=== PATIENT | male | born 1960 | race Hispanic/Latino ===

== ENCOUNTER 2017-05-15 20:28 | Inpatient (IN) | payer MEDICAID, OTHER ==
[2017-05-15 20:28] VITALS: BMI 29.1
--- NOTE | 2017-05-15 23:29 | ED PDOC ---
Lower Extremity Pain/Injury Time Seen by Provider: 05/15/17 22:21 Chief Complaint (Nursing): Lower Extremity Problem/Injury Chief Complaint (Provider): Lower Extremity Problem History Per: Patient History/Exam Limitations: no limitations Onset/Duration Of Symptoms: Days (x3 days) Current Symptoms Are (Timing): Still Present Severity: Moderate Additional Complaint(s): 56 year old male presents to ED with complaints of bilateral lower extremity pain and swelling x3 days; patient has a past medical history of bilateral DVT, HTN, pulmonary embolism, and chronic kidney disease. Notes pain is worse in left leg than the right. (+) SOB, chest tightness, and cough. (-) vomiting, diarrhea, abdominal pain, prolonged immobility (-) current anticoagulation (-) fever (-) hemoptysis (-) rash. PCP: None - Risk Factors DVT Risk Factors: Pos: Decreased Mobility, Decreased Activity, History Of DVT, History Of PE Past Medical History Reviewed: Historical Data, Nursing Documentation, Vital Signs Vital Signs: Last Vital Signs Temp 98.4 F 05/15/17 20:39 Pulse 97 H 05/15/17 20:39 Resp 16 05/15/17 20:39 BP 151/93 H 05/15/17 20:39 Pulse Ox 98 05/15/17 20:39 - Medical History PMH: HTN, Kidney Stones, Pulmonary Embolism, Chronic Kidney Disease Denies: Depression - Surgical History Surgical History: Hernia Repair - Family History Family History: States: Unknown Family Hx - Immunization History Hx Tetanus Toxoid Vaccination: No Hx Influenza Vaccination: No Hx Pneumococcal Vaccination: No - Home Medications Home Medications: Ambulatory Orders Medication Instructions Recorded Amlodipine Besylate [Norvasc] 10 mg PO DAILY #10 tab 02/03/15 - Allergies Allergies/Adverse Reactions: Allergies Allergy/AdvReac Type Severity Reaction Status Date / Time NSAIDS (Non-Steroidal Allergy RASH Verified 05/15/17 20:38 Anti-Inflamma Wells Criteria for PE - Wells Criteria for Pulmonary Embolism Clinical Signs and Symptoms of DVT: Yes Heart Rate >100: No Immobilization at least 3 days;Surgery previous 4 weeks: No Previous, objectively diagnosed PE or DVT: Yes Hemoptysis: No Total Score: 4.5 Review of Systems ROS Statement: Except As Marked, All Systems Reviewed And Found Negative Cardiovascular: Positive for: Chest Pain (chest tightness) Respiratory: Positive for: Cough, Shortness of Breath Gastrointestinal: Negative for: Vomiting, Abdominal Pain, Diarrhea Musculoskeletal: Positive for: Leg Pain (bilateral with swelling) Physical Exam - Reviewed Nursing Documentation Reviewed: Yes Vital Signs Reviewed: Yes - Physical Exam Appears: Positive for: Non-toxic, No Acute Distress (disheveled), Uncomfortable Head Exam: Positive for: NORMOCEPHALIC Skin: Positive for: Normal Color (poor hygiene noted to feet (-) evidence of cellulitis (-) warmth (+) fungal nail infection to all toes), Dry Eye Exam: Positive for: Normal appearance. Negative for: Conjunctival injection ENT: Positive for: Normal ENT Inspection Neck: Positive for: Normal, Painless ROM, Supple, Trachea Midline. Negative for : Limited ROM Cardiovascular/Chest: Positive for: Regular Rate, Rhythm. Negative for: Murmur Respiratory: Positive for: Normal Breath Sounds, Decreased Breath Sounds ( bilaterally), Other (speaking in full sentences, respirations nonlabored.). Negative for: Accessory Muscle Use, Stridor, Respiratory Distress Gastrointestinal/Abdominal: Positive for: Bowel Sounds (active x4), Soft. Negative for: Tenderness, Distended, Guarding, Rebound Back: Negative for: L CVA Tenderness, R CVA Tenderness, Vertebral Tenderness Extremity: Positive for: Normal ROM (decreased ROM of left knee secondary to pain), Pedal Edema (3+ bilaterally), Calf Tenderness (moderate in left calf, mild in right calf), Swelling (3+ pitting edema bilaterally). Negative for: Deformity Neurologic/Psych: Positive for: Alert, Oriented. Negative for: Motor/Sensory Deficits - Laboratory Results Result Diagrams: 05/16/17 00:12 05/16/17 00:12 - ECG O2 Sat by Pulse Oximetry: 98 (RA) Pulse Ox Interpretation: Normal Medical Decision Making Medical Decision Makin Initial impression: bilateral lower leg edema r/o DVT Initial plan: * BNP * Labs * Trop I * PTT/PT * CXR * UA * US DUPLEX LOWER EXTRM VEIN BILAT * EKG 0000 Patient signed out to Josefina Thomas PA-C pending US and labs. Scribe Attestation: Documented by Coral Schwarz, acting as a scribe for Sary Barry PA-C. Provider Scribe Attestation: All medical record entries made by the Scribe were at my direction and personally dictated by me. I have reviewed the chart and agree that the record accurately reflects my personal performance of the history, physical exam, medical decision making, and the department course for this patient. I have also personally directed, reviewed, and agree with the discharge instructions and disposition. Disposition - Clinical Impression Clinical Impression: DVT (deep venous thrombosis), Chest pain - Patient ED Disposition Is Patient to be Admitted: Transfer of Care - Disposition Disposition: Transfer of Care Disposition Time: 00:00 Condition: STABLE Patient Signed Over To: Josefina Thomas Handoff Comments: pending US, CXR, EKG, and labs
[2017-05-16 00:18] LABS: BASO # 0.1 K/uL (0.0-0.2); BASO % 1.1 % (0.0-2.0); EOS # 0.1 K/uL (0.0-0.7); EOS % 2.3 % (0.0-4.0); HEMOGLOBIN 11.5 g/dL (12.0-18.0); LYMPH # 1.3 K/uL (1.0-4.3); LYMPH % 20.4 % (20.0-40.0); MEAN CELL VOLUME 83.5 fl (80.0-94.0); MEAN CORPUSCULAR HEMOGLOBIN 26.9 pg (27.0-31.0); MEAN CORPUSCULAR HGB CONC 32.2 g/dL (33.0-37.0); MEAN PLATELET VOLUME 7.8 fl (7.2-11.7); MONO # 0.6 K/uL (0.0-0.8); MONO % 8.9 % (0.0-10.0); NEUT # 4.2 K/uL (1.8-7.0); NEUT % 67.3 % (50.0-75.0); NRBC % 0.2 % (0.0-0.0); RBC 4.26 Mil/uL (4.40-5.90); RED CELL DISTRIBUTION WIDTH 16.2 % (11.5-14.5); WHITE BLOOD COUNT 6.2 K/uL (4.8-10.8)
[2017-05-16 00:27] LABS: ALBUMIN 3.8 g/dL (3.5-5.0); ALT/SGPT 30 U/L (21-72); AST/SGOT 19 U/L (17-59); BLOOD UREA NITROGEN 10 mg/dl (9-20); GFR AFRICAN-AMERICAN > 60; GFR NON-AFRICAN AMERICAN > 60
[2017-05-16 00:38] LABS: B-TYPE NATRIURETIC PEPTIDE 85.5 pg/ml (0-900)
--- NOTE | 2017-05-16 00:52 | US ---
EXAM: US Duplex Bilateral Lower Extremity Veins CLINICAL HISTORY: 56 years old, male; Signs and symptoms; Edema, localized and swelling of limb; Lower extremity, bilateral; Additional info: B/l lower extremity edema, HX of dvt TECHNIQUE: Real-time ultrasound scan of the veins of the bilateral lower extremities with color Doppler flow, spectral waveform analysis and compression. COMPARISON: US - DUPLEX LOWER EXTRM VEIN RIGHT 2015-06-03 01:09 FINDINGS: Right deep veins: No DVT in the right common femoral. There is nonocclusive thrombus in the right femoral and popliteal veins. Left deep veins: No DVT in the left common femoral and femoral veins. The left common femoral and femoral veins demonstrate normal color flow, are normally compressible, with normal phasic flow and/or augmentation response. There is nonocclusive thrombus in the left popliteal vein. Soft tissues: Soft tissue edema. No popliteal cyst. IMPRESSION: Bilateral lower extremity deep venous thrombosis.
[2017-05-16] MEDS ORDERED: Enoxaparin 120 mg Syringe SC STA (01:09)
[2017-05-16] MEDS ORDERED: Morphine 4 MG/ML VIAL IVP ONE (01:11)
--- NOTE | 2017-05-16 01:13 | ED PDOC ---
- Laboratory Results Result Diagrams: 05/16/17 00:12 05/16/17 00:12 - ECG O2 Sat by Pulse Oximetry: 98 (RA) - Progress ED Course And Treament: Case endorsed to keno writer/runner from [facility] FLAHERTY pending labs, imaging EXAM: US Duplex Bilateral Lower Extremity Veins CLINICAL HISTORY: 56 years old, male; Signs and symptoms; Edema, localized and swelling of limb; Lower extremity, bilateral; Additional info: B/l lower extremity edema, HX of dvt TECHNIQUE: Real-time ultrasound scan of the veins of the bilateral lower extremities with color Doppler flow, spectral waveform analysis and compression. COMPARISON: US - DUPLEX LOWER EXTRM VEIN RIGHT 2015-06-03 01:09 FINDINGS: Right deep veins: No DVT in the right common femoral. There is nonocclusive thrombus in the right femoral and popliteal veins. Left deep veins: No DVT in the left common femoral and femoral veins. The left common femoral and femoral veins demonstrate normal color flow, are normally compressible, with normal phasic flow and/or augmentation response. There is nonocclusive thrombus in the left popliteal vein. Soft tissues: Soft tissue edema. No popliteal cyst. IMPRESSION: Bilateral lower extremity deep venous thrombosis. Patient educated on findings, Lovenox dose ordered. Patient with complaints of chest tightness earlier tonight, CTA ordered CT Scan ANGIO CHEST PE PROTOCOL Exam Date: 05/16/17 This imaging exam was performed at [facility] EXAM: CT Angiography Chest With Intravenous Contrast CLINICAL HISTORY: 56 years old, male; Pain; Chest pressure; Additional info: Chest tightness, + dvt TECHNIQUE: Axial computed tomographic angiography images of the chest with intravenous contrast using pulmonary embolism protocol. All CT scans at this facility use one or more dose reduction techniques, viz.: automated exposure control; ma/kV adjustment per patient size (including targeted exams where dose is matched to indication; i.e. head); or iterative reconstruction technique. 1242 images are submitted. Axial images are submitted in soft tissue lung and bone windows. MIP reconstructed images were created and reviewed. Coronal and sagittal reformatted images were created and reviewed. CONTRAST: 95 mL of [id number] administered intravenously. COMPARISON: CT - ANGIO CHEST PE PROTOCOL 2015-03-25 15:18 FINDINGS: Pulmonary arteries: The pulmonary artery enhancement measures 149-169 Hounsfield units which decreases the sensitivity of the examination. As shown no definite central pulmonary embolus is identified. Aorta: No acute findings. No thoracic aortic aneurysm. Lungs: There is bibasilar atelectasis. COPD. Minimal biapical subpleural bullous disease. Minimal lingular infiltration. The major airways are patent. No mass. Pleural space: Unremarkable. No significant effusion. No pneumothorax. Heart: Cardiomegaly. Trace fluid in the superior pericardial recess. Mediastinum: Small hiatal hernia. Bones/joints: No acute fracture. No dislocation. Soft tissues: Unremarkable. Lymph nodes: Right hilar lymph nodes. Liver: Enlarged fatty liver. Spleen: Enlarged spleen measuring 14.6 cm. Adrenals: Normal adrenal glands. Other findings: Multilevel vacuum degenerative disc disease. IMPRESSION: 1. The pulmonary artery enhancement measures 149-169 Hounsfield units which decreases the sensitivity of the examination. As shown no definite central pulmonary embolus is identified. 2. No active disease. Case discussed with Dr. Perez, Medical service on-call, for admission. Disposition - Clinical Impression Clinical Impression: DVT (deep venous thrombosis), Chest pain - POA Present On Arrival: Deep Vein Thrombosis / PE - Disposition Disposition: Admitted as In-Patient Disposition Time: 03:45 Condition: FAIR
[2017-05-16 01:14] LABS: PROTHROMBIN TIME 11.7 Seconds (9.8-13.1)
[2017-05-16 01:15] LABS: INR 1.1 (0.9-1.2); PARTIAL THROMBOPLASTIN TIME 27.8 Seconds (25.6-37.1)
[2017-05-16] MEDS ORDERED: Morphine 4 MG/ML VIAL ONE (01:22)
[2017-05-16] MEDS ORDERED: Sodium Chloride 0.9% 50 ML IV ONE (01:35)
[2017-05-16] MEDS ORDERED: Iodixanol 320 MG/ML 100 ML BOTTLE IV ONE (01:36)
--- NOTE | 2017-05-16 03:11 | CT ---
EXAM: CT Angiography Chest With Intravenous Contrast CLINICAL HISTORY: 56 years old, male; Pain; Chest pressure; Additional info: Chest tightness, + dvt TECHNIQUE: Axial computed tomographic angiography images of the chest with intravenous contrast using pulmonary embolism protocol. All CT scans at this facility use one or more dose reduction techniques, viz.: automated exposure control; ma/kV adjustment per patient size (including targeted exams where dose is matched to indication; i.e. head); or iterative reconstruction technique. 1242 images are submitted. Axial images are submitted in soft tissue lung and bone windows. MIP reconstructed images were created and reviewed. Coronal and sagittal reformatted images were created and reviewed. CONTRAST: 95 mL of [id number] administered intravenously. COMPARISON: CT - ANGIO CHEST PE PROTOCOL 2015-03-25 15:18 FINDINGS: Pulmonary arteries: The pulmonary artery enhancement measures 149-169 Hounsfield units which decreases the sensitivity of the examination. As shown no definite central pulmonary embolus is identified. Aorta: No acute findings. No thoracic aortic aneurysm. Lungs: There is bibasilar atelectasis. COPD. Minimal biapical subpleural bullous disease. Minimal lingular infiltration. The major airways are patent. No mass. Pleural space: Unremarkable. No significant effusion. No pneumothorax. Heart: Cardiomegaly. Trace fluid in the superior pericardial recess. Mediastinum: Small hiatal hernia. Bones/joints: No acute fracture. No dislocation. Soft tissues: Unremarkable. Lymph nodes: Right hilar lymph nodes. Liver: Enlarged fatty liver. Spleen: Enlarged spleen measuring 14.6 cm. Adrenals: Normal adrenal glands. Other findings: Multilevel vacuum degenerative disc disease. IMPRESSION: 1. The pulmonary artery enhancement measures 149-169 Hounsfield units which decreases the sensitivity of the examination. As shown no definite central pulmonary embolus is identified. 2. No active disease.
[2017-05-16 03:27] LABS: URINE COLOR LIGHT YELLOW (YELLOW)
[2017-05-16 03:28] LABS: PH,URINE 7.5 (5.0-8.0); URINE BILIRUBIN NEGATIVE (NEGATIVE); URINE BLOOD NEGATIVE (NEGATIVE); URINE CLARITY Clear (Clear); URINE GLUCOSE (UA) NEGATIVE (Normal); URINE LEUKOCYTE ESTERASE NEGATIVE Leu/uL (Negative); URINE NITRATE NEGATIVE (NEGATIVE); URINE PROTEIN NEGATIVE (NEGATIVE); URINE UROBILINOGEN 0.2 mg/dL (0.2-1.0)
[2017-05-16] MEDS ORDERED: HYDROmorphone 0.5 mg/0.5 ml ISec IVP ONE (06:00)
[2017-05-16] MEDS: oxyCODONE 10 mg Immediate Release Tab PO PRN ×3 (09:37→22:21)
--- NOTE | 2017-05-16 09:58 | RAD ---
HISTORY: SOB, leg swelling COMPARISON: Comparison chest dated 06/03/2015. TECHNIQUE: Chest PA and lateral FINDINGS: LUNGS: Mild bibasilar atelectasis left greater than right PLEURA: No significant pleural effusion identified. No pneumothorax apparent. CARDIOVASCULAR: Normal. OSSEOUS STRUCTURES: Minor multilevel degenerative spondylosis of the thoracic spine. VISUALIZED UPPER ABDOMEN: Normal. OTHER FINDINGS: None. IMPRESSION: Minor bibasilar atelectasis left greater than right.
[2017-05-16] MEDS: Enoxaparin 120 mg Syringe SC SCH ×2 (10:24→21:01)
--- NOTE | 2017-05-16 10:52 | CARD ---
APPROVED REPORT EKG Measurement Heart [id number] <Conclusion> Normal sinus rhythm Normal ECG
--- NOTE | 2017-05-16 12:47 | CP.PCM.CON ---
History of Present Illness - History of Present Illness History of Present Illness: General Surgery Consult Note - Dr. Minaya 56 y/o male with PMHx of B/L DVT, PE, and HTN seen at bedside for surgical consultation s/p bilateral lower extremity DVT. Pt states he noticed his legs began to swell and become painful 3 days ago. Yesterday, he began feeling short of breath and chest tightness while at work, which prompted his hospital visit. He states he has had clots in his legs before, and that the first time it happened they traveled up to his lungs. He admits to being on Coumadin for several years until approx 4-6 months ago, when he went to a new clinic and was told by his doctor he could stop taking. Since then, he has not been on any blood thinners. At present, he admits to mild tenderness in both calves but otherwise feels ok. States he has not experienced any CP/SOB since admission. Denies F/C/N/V. PSH: five left knee surgeries, left side hernia repair, right corneal transplant All: NSAIDS (rash, hives) FamHx: noncontributory SocHx: social EtOH; 4 cigs/day (formerly 1 pack/day for 30 years until 2 months ago); denies drug use Review of Systems - Review of Systems All systems: reviewed and no additional remarkable complaints except (per HPI) Past Patient History - Past Medical History & Family History Past Medical History?: Yes - Past Social History Smoking Status: Light Smoker < 10 Cigarettes Daily - CARDIAC Hx Cardiac Disorders: Yes Hx Hypertension: Yes - PULMONARY Hx Respiratory Disorders: Yes Hx Pulmonary Embolism: Yes - NEUROLOGICAL Hx Neurological Disorder: No - HEENT Hx HEENT Problems: No - RENAL Hx Chronic Kidney Disease: Yes Hx Kidney Stones: Yes - ENDOCRINE/METABOLIC Hx Endocrine Disorders: No - HEMATOLOGICAL/ONCOLOGICAL Hx Blood Disorders: No Hx AIDS: No Hx Human Immunodeficiency Virus (HIV): No - INTEGUMENTARY Hx Dermatological Problems: No - MUSCULOSKELETAL/RHEUMATOLOGICAL Hx Musculoskeletal Disorders: No Hx Falls: No - GASTROINTESTINAL Hx Gastrointestinal Disorders: No - GENITOURINARY/GYNECOLOGICAL Hx Genitourinary Disorders: No - PSYCHIATRIC Hx Psychophysiologic Disorder: No Hx Depression: No Hx Substance Use: No - SURGICAL HISTORY Hx Surgeries: Yes Hx Herniorrhaphy: Yes Hx Orthopedic Surgery: Yes (L KNEE) - ANESTHESIA Hx Anesthesia: Yes Hx Anesthesia Reactions: No Meds Allergies/Adverse Reactions: Allergies Allergy/AdvReac Type Severity Reaction Status Date / Time NSAIDS (Non-Steroidal Allergy RASH Verified 05/15/17 20:38 Anti-Inflamma - Medications Medications: Current Medications Acetaminophen (Tylenol 325mg Tab) 650 mg PO Q6 PRN PRN Reason: Pain, moderate (4-7) Amlodipine Besylate (Norvasc) 10 mg PO DAILY CANDI Enoxaparin Sodium (Lovenox) 110 mg SC Q12 CANDI PRN Reason: Protocol Last Admin: 05/16/17 10:24 Dose: 110 mg Oxycodone HCl (Oxycodone Immediate Release Tab) 10 mg PO Q6 PRN PRN Reason: Pain, severe (8-10) Last Admin: 05/16/17 09:37 Dose: 10 mg Physical Exam - Constitutional Appears: Well, Non-toxic, No Acute Distress - Extremities Exam Extremities exam: Positive for: calf tenderness, pedal edema Additional comments: bilateral pedal edema noted, L>R erythema with increase in temperature noted, L>R mild posterior calf tenderness B/L Results - Vital Signs Recent Vital Signs: Last Vital Signs Temp 98.3 F 05/16/17 08:00 Pulse 76 05/16/17 09:00 Resp 18 05/16/17 08:00 BP 136/81 05/16/17 08:00 Pulse Ox 96 05/16/17 08:00 - Labs Result Diagrams: 05/16/17 00:12 05/16/17 00:12 Labs: Laboratory Results - last 24 hr 05/16/17 05/16/17 05/16/17 00:12 00:12 00:12 WBC 6.2 RBC 4.26 L Hgb 11.5 L Hct 35.6 MCV 83.5 D MCH 26.9 L MCHC 32.2 L RDW 16.2 H Plt Count 194 MPV 7.8 Neut % (Auto) 67.3 Lymph % (Auto) 20.4 [place] % (Auto) 8.9 Eos % (Auto) 2.3 Baso % (Auto) 1.1 Neut # (Auto) 4.2 Lymph # (Auto) 1.3 [place] # (Auto) 0.6 Eos # (Auto) 0.1 Baso # (Auto) 0.1 PT 11.7 INR 1.1 APTT 27.8 Sodium 140 Potassium 4.1 Chloride 106 Carbon Dioxide 23 Anion Gap 15 BUN 10 Creatinine 0.7 L Est GFR ( Amer) > 60 Est GFR (Non-Af Amer) > 60 Random Glucose 92 Calcium 9.0 Total Bilirubin 0.4 AST 19 ALT 30 Alkaline Phosphatase 80 Troponin I < 0.0120 NT-Pro-B Natriuret Pep 85.5 Total Protein 7.6 Albumin 3.8 Globulin 3.8 Albumin/Globulin Ratio 1.0 Urine Color Urine Clarity Urine pH Ur Specific [place] Urine Protein Urine Glucose (UA) Urine Ketones Urine Blood Urine Nitrate Urine Bilirubin Urine Urobilinogen Ur Leukocyte Esterase 05/16/17 05/16/17 00:12 08:43 WBC RBC Hgb Hct MCV MCH MCHC RDW Plt Count MPV Neut % (Auto) Lymph % (Auto) [place] % (Auto) Eos % (Auto) Baso % (Auto) Neut # (Auto) Lymph # (Auto) [place] # (Auto) Eos # (Auto) Baso # (Auto) PT INR APTT Sodium Potassium Chloride Carbon Dioxide Anion Gap BUN Creatinine Est GFR ( Amer) Est GFR (Non-Af Amer) Random Glucose Calcium Total Bilirubin AST ALT Alkaline Phosphatase Troponin I < 0.0120 NT-Pro-B Natriuret Pep Total Protein Albumin Globulin Albumin/Globulin Ratio Urine Color Light yellow Urine Clarity Clear Urine pH 7.5 Ur Specific [place] 1.010 Urine Protein Negative Urine Glucose (UA) Negative Urine Ketones Negative Urine Blood Negative Urine Nitrate Negative Urine Bilirubin Negative Urine Urobilinogen 0.2 Ur Leukocyte Esterase Negative Assessment & Plan - Assessment and Plan (Free Text) Assessment: 56M with B/L lower extremity DVT Plan: -plan for IVC filter tomorrow morning -continue pain mgt per primary team -continue Lovenox -discussed with Dr. Minaya
[2017-05-16] MEDS ORDERED: oxyCODONE 10 mg Immediate Release Tab PO ONE (14:27)
--- NOTE | 2017-05-16 17:24 | CP.PCM.HP ---
History of Present Illness - History of Present Illness History of Present Illness: A 56 year old male came for swelling and pain of both lower legs for three to four days. He has a history of DVT left five years ago and at that time he had a PE too. He has been taking coumadin until 4-6 months ago when he heard that he could stop taking coumadin. He also felt chest tightness yesterday which prompted him to come to ER. He denies shortness of breath or chest pain. He denies any family history of bleeding disorder. He denies any recent surgery , trauma, any medications or cancer. He smokes four cigarettes a day. He used to take 10 mg of oxycodone at home for severe pain as needed. Present on Admission - Present on Admission Any Indicators Present on Admission: No History of DVT/PE: Yes History of Uncontrolled Diabetes: No Urinary Catheter: No Decubitus Ulcer Present: No Review of Systems - Constitutional Constitutional: absent: Chills - Cardiovascular Cardiovascular: absent: Chest Pain - Respiratory Respiratory: absent: Cough - Gastrointestinal Gastrointestinal: absent: Nausea, Vomiting - Neurological Neurological: absent: Abnormal Hearing Past Patient History - Past Medical History & Family History Past Medical History?: Yes - Past Social History Smoking Status: Light Smoker < 10 Cigarettes Daily - CARDIAC Hx Cardiac Disorders: Yes Hx Hypertension: Yes - PULMONARY Hx Respiratory Disorders: Yes Hx Pulmonary Embolism: Yes - NEUROLOGICAL Hx Neurological Disorder: No - HEENT Hx HEENT Problems: No - RENAL Hx Chronic Kidney Disease: Yes Hx Kidney Stones: Yes - ENDOCRINE/METABOLIC Hx Endocrine Disorders: No - HEMATOLOGICAL/ONCOLOGICAL Hx Blood Disorders: No Hx AIDS: No Hx Human Immunodeficiency Virus (HIV): No - INTEGUMENTARY Hx Dermatological Problems: No - MUSCULOSKELETAL/RHEUMATOLOGICAL Hx Musculoskeletal Disorders: No Hx Falls: No - GASTROINTESTINAL Hx Gastrointestinal Disorders: No - GENITOURINARY/GYNECOLOGICAL Hx Genitourinary Disorders: No - PSYCHIATRIC Hx Psychophysiologic Disorder: No Hx Depression: No Hx Substance Use: No - SURGICAL HISTORY Hx Surgeries: Yes Hx Herniorrhaphy: Yes Hx Orthopedic Surgery: Yes (L KNEE) - ANESTHESIA Hx Anesthesia: Yes Hx Anesthesia Reactions: No Meds Allergies/Adverse Reactions: Allergies Allergy/AdvReac Type Severity Reaction Status Date / Time NSAIDS (Non-Steroidal Allergy RASH Verified 05/15/17 20:38 Anti-Inflamma Physical Exam - Constitutional Appears: No Acute Distress - Respiratory Exam Respiratory Exam: Clear to Auscultation Bilateral, NORMAL BREATHING PATTERN. absent: Wheezes - Cardiovascular Exam Cardiovascular Exam: REGULAR RHYTHM. absent: Systolic Murmur - GI/Abdominal Exam GI & Abdominal Exam: Distended, Soft. absent: Tenderness - Extremities Exam Extremities exam: Positive for: calf tenderness (edematous, reddish swelling of both lower legs. warm extremities.) Results - Vital Signs Recent Vital Signs: Last Vital Signs Temp 97.9 F 05/16/17 17:00 Pulse 75 05/16/17 17:00 Resp 14 05/16/17 17:00 BP 143/86 05/16/17 17:00 Pulse Ox 97 05/16/17 17:00 - Labs Result Diagrams: 05/16/17 00:12 05/16/17 00:12 Labs: Laboratory Results - last 24 hr 05/16/17 05/16/17 05/16/17 00:12 00:12 00:12 WBC 6.2 RBC 4.26 L Hgb 11.5 L Hct 35.6 MCV 83.5 D MCH 26.9 L MCHC 32.2 L RDW 16.2 H Plt Count 194 MPV 7.8 Neut % (Auto) 67.3 Lymph % (Auto) 20.4 [place] % (Auto) 8.9 Eos % (Auto) 2.3 Baso % (Auto) 1.1 Neut # (Auto) 4.2 Lymph # (Auto) 1.3 [place] # (Auto) 0.6 Eos # (Auto) 0.1 Baso # (Auto) 0.1 PT 11.7 INR 1.1 APTT 27.8 Sodium 140 Potassium 4.1 Chloride 106 Carbon Dioxide 23 Anion Gap 15 BUN 10 Creatinine 0.7 L Est GFR ( Amer) > 60 Est GFR (Non-Af Amer) > 60 Random Glucose 92 Calcium 9.0 Total Bilirubin 0.4 AST 19 ALT 30 Alkaline Phosphatase 80 Troponin I < 0.0120 NT-Pro-B Natriuret Pep 85.5 Total Protein 7.6 Albumin 3.8 Globulin 3.8 Albumin/Globulin Ratio 1.0 Urine Color Urine Clarity Urine pH Ur Specific [place] Urine Protein Urine Glucose (UA) Urine Ketones Urine Blood Urine Nitrate Urine Bilirubin Urine Urobilinogen Ur Leukocyte Esterase 05/16/17 05/16/17 00:12 08:43 WBC RBC Hgb Hct MCV MCH MCHC RDW Plt Count MPV Neut % (Auto) Lymph % (Auto) [place] % (Auto) Eos % (Auto) Baso % (Auto) Neut # (Auto) Lymph # (Auto) [place] # (Auto) Eos # (Auto) Baso # (Auto) PT INR APTT Sodium Potassium Chloride Carbon Dioxide Anion Gap BUN Creatinine Est GFR ( Amer) Est GFR (Non-Af Amer) Random Glucose Calcium Total Bilirubin AST ALT Alkaline Phosphatase Troponin I < 0.0120 NT-Pro-B Natriuret Pep Total Protein Albumin Globulin Albumin/Globulin Ratio Urine Color Light yellow Urine Clarity Clear Urine pH 7.5 Ur Specific [place] 1.010 Urine Protein Negative Urine Glucose (UA) Negative Urine Ketones Negative Urine Blood Negative Urine Nitrate Negative Urine Bilirubin Negative Urine Urobilinogen 0.2 Ur Leukocyte Esterase Negative Assessment & Plan - Assessment and Plan (Free Text) Assessment: DVT b/l lower extremities no PE history of DVT and PE Plan: therapeutic dose of lovenox vascular surgery consult. will bridge to coumadin. - Date & Time Date: 05/16/17 Time: 17:27
--- NOTE | 2017-05-16 21:47 | CP.PCM.CON ---
History of Present Illness - History of Present Illness History of Present Illness: 56 year old male with a history of recurrent DVT and PE, off anticoagulation, admitted with LE swelling, found to have B/L LE DVT. 2013 - unprovoked left LE + PE, placed on coumadin x 1.5 years 2017 - recurrent LLE DVT, placed on coumadin and was stopped 3-4 months ago. Denies immobility or LE trauma. Reports to staying active. Past medical history: DVT/PE, HTN Past surgical history: Five knee surgery, hernia repair, right cornea transplant Family history: Denies abnormal bleeding/clotting in the family Social history: Smokes 4-5 cigarettes daily, social alcohol, denies illicit drug use. Allergies: NSAIDs Review of systems: All remaining review of systems including HEENT, cardiovascular, respiratory, gastrointestinal, genitourinary, musculoskeletal, dermatologic, neurologic, and psychiatric are negative unless mentioned in the HPI. Past Patient History - Past Medical History & Family History Past Medical History?: Yes - Past Social History Smoking Status: Light Smoker < 10 Cigarettes Daily - CARDIAC Hx Cardiac Disorders: Yes Hx Hypertension: Yes - PULMONARY Hx Respiratory Disorders: Yes Hx Pulmonary Embolism: Yes - NEUROLOGICAL Hx Neurological Disorder: No - HEENT Hx HEENT Problems: No - RENAL Hx Chronic Kidney Disease: Yes Hx Kidney Stones: Yes - ENDOCRINE/METABOLIC Hx Endocrine Disorders: No - HEMATOLOGICAL/ONCOLOGICAL Hx Blood Disorders: No Hx AIDS: No Hx Human Immunodeficiency Virus (HIV): No - INTEGUMENTARY Hx Dermatological Problems: No - MUSCULOSKELETAL/RHEUMATOLOGICAL Hx Musculoskeletal Disorders: No Hx Falls: No - GASTROINTESTINAL Hx Gastrointestinal Disorders: No - GENITOURINARY/GYNECOLOGICAL Hx Genitourinary Disorders: No - PSYCHIATRIC Hx Psychophysiologic Disorder: No Hx Depression: No Hx Substance Use: No - SURGICAL HISTORY Hx Surgeries: Yes Hx Herniorrhaphy: Yes Hx Orthopedic Surgery: Yes (L KNEE) - ANESTHESIA Hx Anesthesia: Yes Hx Anesthesia Reactions: No Meds Allergies/Adverse Reactions: Allergies Allergy/AdvReac Type Severity Reaction Status Date / Time NSAIDS (Non-Steroidal Allergy RASH Verified 05/15/17 20:38 Anti-Inflamma - Medications Medications: Current Medications Acetaminophen (Tylenol 325mg Tab) 650 mg PO Q6 PRN PRN Reason: Pain, moderate (4-7) Amlodipine Besylate (Norvasc) 10 mg PO DAILY [facility] Last Admin: 05/16/17 13:23 Dose: 10 mg Enoxaparin Sodium (Lovenox) 110 mg SC Q12 [facility] PRN Reason: Protocol Last Admin: 05/16/17 21:01 Dose: 110 mg Oxycodone HCl (Oxycodone Immediate Release Tab) 10 mg PO Q4H PRN PRN Reason: Pain, severe (8-10) Physical Exam - Head Exam Head Exam: ATRAUMATIC - Eye Exam Eye Exam: Normal appearance - ENT Exam ENT Exam: Mucous Membranes Dry - Respiratory Exam Respiratory Exam: NORMAL BREATHING PATTERN - Cardiovascular Exam Cardiovascular Exam: +S1, +S2 - GI/Abdominal Exam GI & Abdominal Exam: Normal Bowel Sounds - Extremities Exam Extremities exam: Positive for: pedal edema - Neurological Exam Neurological exam: Oriented x3 - Psychiatric Exam Psychiatric exam: Normal Affect, Normal Mood - Skin Skin Exam: Warm Results - Vital Signs Recent Vital Signs: Last Vital Signs Temp 98.5 F 05/16/17 20:55 Pulse 75 05/16/17 20:55 Resp 16 05/16/17 20:55 BP 133/83 05/16/17 20:55 Pulse Ox 96 05/16/17 20:55 - Labs Result Diagrams: 05/16/17 00:12 05/16/17 00:12 Labs: Laboratory Results - last 24 hr 05/16/17 05/16/17 05/16/17 00:12 00:12 00:12 WBC 6.2 RBC 4.26 L Hgb 11.5 L Hct 35.6 MCV 83.5 D MCH 26.9 L MCHC 32.2 L RDW 16.2 H Plt Count 194 MPV 7.8 Neut % (Auto) 67.3 Lymph % (Auto) 20.4 [place] % (Auto) 8.9 Eos % (Auto) 2.3 Baso % (Auto) 1.1 Neut # (Auto) 4.2 Lymph # (Auto) 1.3 [place] # (Auto) 0.6 Eos # (Auto) 0.1 Baso # (Auto) 0.1 PT 11.7 INR 1.1 APTT 27.8 Sodium 140 Potassium 4.1 Chloride 106 Carbon Dioxide 23 Anion Gap 15 BUN 10 Creatinine 0.7 L Est GFR ( Amer) > 60 Est GFR (Non-Af Amer) > 60 Random Glucose 92 Calcium 9.0 Total Bilirubin 0.4 AST 19 ALT 30 Alkaline Phosphatase 80 Troponin I < 0.0120 NT-Pro-B Natriuret Pep 85.5 Total Protein 7.6 Albumin 3.8 Globulin 3.8 Albumin/Globulin Ratio 1.0 Urine Color Urine Clarity Urine pH Ur Specific Whitney Urine Protein Urine Glucose (UA) Urine Ketones Urine Blood Urine Nitrate Urine Bilirubin Urine Urobilinogen Ur Leukocyte Esterase 05/16/17 05/16/17 00:12 08:43 WBC RBC Hgb Hct MCV MCH MCHC RDW Plt Count MPV Neut % (Auto) Lymph % (Auto) [place] % (Auto) Eos % (Auto) Baso % (Auto) Neut # (Auto) Lymph # (Auto) [place] # (Auto) Eos # (Auto) Baso # (Auto) PT INR APTT Sodium Potassium Chloride Carbon Dioxide Anion Gap BUN Creatinine Est GFR ( Amer) Est GFR (Non-Af Amer) Random Glucose Calcium Total Bilirubin AST ALT Alkaline Phosphatase Troponin I < 0.0120 NT-Pro-B Natriuret Pep Total Protein Albumin Globulin Albumin/Globulin Ratio Urine Color Light yellow Urine Clarity Clear Urine pH 7.5 Ur Specific Whitney 1.010 Urine Protein Negative Urine Glucose (UA) Negative Urine Ketones Negative Urine Blood Negative Urine Nitrate Negative Urine Bilirubin Negative Urine Urobilinogen 0.2 Ur Leukocyte Esterase Negative Assessment & Plan (1) DVT (deep venous thrombosis) Assessment and Plan: recurrent, unprovoked B/L LE DVT on therapeutic lovenox okay to restart coumadin will need lifelong therapeutic anticoagulation given recurrence discussed smoking cessation vascular surgery evaluation for IVC filter consideration Status: Acute (2) Anemia Assessment and Plan: will check ferritin, retic count, b12, folate, FOBT to further characterize Thank you for this interesting consult. Status: Acute
[2017-05-17] MEDS: oxyCODONE 10 mg Immediate Release Tab PO PRN ×6 (02:54→23:25)
[2017-05-17 06:18] LABS: PROTHROMBIN TIME 11.7 Seconds (9.8-13.1)
[2017-05-17 06:19] LABS: INR 1.1 (0.9-1.2)
[2017-05-17 06:49] LABS: FERRITIN 32.5 ng/Ml (17.9-464)
--- NOTE | 2017-05-17 07:44 | CP.PCM.PCO ---
Physician Communication Note - Physician Communication Note Physician Communication Note: pt refuses IVC procedure. Would prefer anticoagulation
[2017-05-17] MEDS: Enoxaparin 120 mg Syringe SC SCH ×2 (09:32→21:38)
[2017-05-17 17:31] LABS: FOLATE 11.9 ng/mL
--- NOTE | 2017-05-17 18:01 | CP.PCM.PN ---
Subjective - Date & Time of Evaluation Date of Evaluation: 05/17/17 Time of Evaluation: 17:57 - Subjective Subjective: itching and more redness on right lower leg no change of left leg Objective - Vital Signs/Intake and Output Vital Signs (last 24 hours): Temp Pulse Resp BP Pulse Ox 97.1 F L 74 14 131/81 97 05/17/17 16:45 05/17/17 16:45 05/17/17 16:45 05/17/17 16:45 05/17/17 16:45 Intake and Output: 05/17/17 05/17/17 06:59 18:59 Intake Total 1400 Balance 1400 - Medications Medications: Current Medications Acetaminophen (Tylenol 325mg Tab) 650 mg PO Q6 PRN PRN Reason: Pain, moderate (4-7) Amlodipine Besylate (Norvasc) 10 mg PO DAILY [facility] Last Admin: 05/17/17 09:33 Dose: 10 mg Enoxaparin Sodium (Lovenox) 110 mg SC Q12 [facility] PRN Reason: Protocol Last Admin: 05/17/17 09:32 Dose: 110 mg Oxycodone HCl (Oxycodone Immediate Release Tab) 10 mg PO Q4H PRN PRN Reason: Pain, severe (8-10) Last Admin: 05/17/17 15:18 Dose: 10 mg - Labs Labs: 05/16/17 00:12 05/16/17 00:12 PT 11.7 Seconds (9.8-13.1) 05/17/17 04:50 INR 1.1 (0.9-1.2) 05/17/17 04:50 APTT 27.8 Seconds (25.6-37.1) 05/16/17 00:12 - Constitutional Appears: No Acute Distress - Respiratory Exam Respiratory Exam: Clear to Ausculation Bilateral. absent: Wheezes - Cardiovascular Exam Cardiovascular Exam: REGULAR RHYTHM. absent: Murmur - GI/Abdominal Exam GI & Abdominal Exam: Soft. absent: Tenderness Assessment and Plan - Assessment and Plan (Free Text) Assessment: bilateral lower extremity DVT on therapeutic lovenox coumadin 5 mg started today Plan: repeat PT and INR tomorrow morning as per hematology, he needs a lifelong anti-coagulation continue lovenox, bridge to coumadin he is requesting benadryl for itchiness. also he asks regular diet instead of 2 gram sodium diet.
--- NOTE | 2017-05-17 21:32 | CP.PCM.PN ---
Subjective - Date & Time of Evaluation Date of Evaluation: 05/17/17 Time of Evaluation: 18:55 - Subjective Subjective: Has itching in legs Objective - Vital Signs/Intake and Output Vital Signs (last 24 hours): Temp Pulse Resp BP Pulse Ox 98.2 F 79 16 131/87 97 05/17/17 20:28 05/17/17 20:47 05/17/17 20:28 05/17/17 20:28 05/17/17 20:28 Intake and Output: 05/17/17 05/18/17 18:59 06:59 Intake Total 1400 Balance 1400 - Medications Medications: Current Medications Acetaminophen (Tylenol 325mg Tab) 650 mg PO Q6 PRN PRN Reason: Pain, moderate (4-7) Amlodipine Besylate (Norvasc) 10 mg PO DAILY [facility] Last Admin: 05/17/17 09:33 Dose: 10 mg Diphenhydramine HCl (Benadryl) 25 mg PO Q6 PRN PRN Reason: Itching / Pruritus Last Admin: 05/17/17 18:18 Dose: 25 mg Enoxaparin Sodium (Lovenox) 110 mg SC Q12 [facility] PRN Reason: Protocol Last Admin: 05/17/17 09:32 Dose: 110 mg Oxycodone HCl (Oxycodone Immediate Release Tab) 10 mg PO Q4H PRN PRN Reason: Pain, severe (8-10) Last Admin: 05/17/17 19:26 Dose: 10 mg - Labs Labs: 05/16/17 00:12 05/16/17 00:12 PT 11.7 Seconds (9.8-13.1) 05/17/17 04:50 INR 1.1 (0.9-1.2) 05/17/17 04:50 APTT 27.8 Seconds (25.6-37.1) 05/16/17 00:12 - Head Exam Head Exam: ATRAUMATIC - Eye Exam Eye Exam: Normal appearance - ENT Exam ENT Exam: Mucous Membranes Dry - Respiratory Exam Respiratory Exam: NORMAL BREATHING PATTERN - Cardiovascular Exam Cardiovascular Exam: +S1, +S2 - GI/Abdominal Exam GI & Abdominal Exam: Normal Bowel Sounds - Extremities Exam Extremities Exam: Pedal Edema Assessment and Plan (1) DVT (deep venous thrombosis) Assessment & Plan: therapeutic anticoagulation for life given recurrent venous clotting on lovenox bridging with coumadin; goal INR 2-3 Status: Acute (2) Anemia Assessment & Plan: iron and b12 deficiency will supplement Status: Acute
[2017-05-18] MEDS: oxyCODONE 10 mg Immediate Release Tab PO PRN ×6 (03:36→23:43)
--- NOTE | 2017-05-18 05:46 | CP.PCM.PN ---
Subjective - Date & Time of Evaluation Date of Evaluation: 05/18/17 Time of Evaluation: 05:15 - Subjective Subjective: Vascular Surgery- Dr. Minaya Patient seen and examined at bedside this AM. no acute events overnight. Patient is refusing IVC filter. No new complaints at this time Objective - Vital Signs/Intake and Output Vital Signs (last 24 hours): Temp Pulse Resp BP Pulse Ox 97.8 F 69 18 135/88 97 05/18/17 05:04 05/18/17 05:04 05/18/17 05:04 05/18/17 05:04 05/18/17 05:04 Intake and Output: 05/17/17 05/18/17 18:59 06:59 Intake Total 1400 Balance 1400 - Medications Medications: Current Medications Acetaminophen (Tylenol 325mg Tab) 650 mg PO Q6 PRN PRN Reason: Pain, moderate (4-7) Amlodipine Besylate (Norvasc) 10 mg PO DAILY [facility] Last Admin: 05/17/17 09:33 Dose: 10 mg Cyanocobalamin (Vitamin B12 1000 Mcg/Ml Inj) 1,000 mcg IM DAILY [facility] Diphenhydramine HCl (Benadryl) 25 mg PO Q6 PRN PRN Reason: Itching / Pruritus Last Admin: 05/17/17 18:18 Dose: 25 mg Enoxaparin Sodium (Lovenox) 110 mg SC Q12 [facility] PRN Reason: Protocol Last Admin: 05/17/17 21:38 Dose: 110 mg Iron Sucrose 200 mg/ Sodium (Chloride) 110 mls @ 110 mls/hr IVPB DAILY [facility] Stop: 05/23/17 09:01 Oxycodone HCl (Oxycodone Immediate Release Tab) 10 mg PO Q4H PRN PRN Reason: Pain, severe (8-10) Last Admin: 05/18/17 03:36 Dose: 10 mg - Labs Labs: 05/16/17 00:12 05/16/17 00:12 PT 11.7 Seconds (9.8-13.1) 05/17/17 04:50 INR 1.1 (0.9-1.2) 05/17/17 04:50 APTT 27.8 Seconds (25.6-37.1) 05/16/17 00:12 - Constitutional Appears: Non-toxic, No Acute Distress - Head Exam Head Exam: ATRAUMATIC - Eye Exam Eye Exam: EOMI. absent: Scleral icterus - Respiratory Exam Respiratory Exam: NORMAL BREATHING PATTERN. absent: Accessory Muscle Use, Respiratory Distress - Cardiovascular Exam Cardiovascular Exam: +S1, +S2. absent: Bradycardia, Tachycardia - GI/Abdominal Exam GI & Abdominal Exam: Soft. absent: Firm, Guarding, Rigid, Tenderness - Neurological Exam Neurological Exam: Alert, Awake, Oriented x3 - Psychiatric Exam Psychiatric exam: Agitated - Skin Skin Exam: Intact, Warm Assessment and Plan - Assessment and Plan (Free Text) Assessment: 56M recurrent LLE DVT; patient refusing surgery anti-coag therapy; was to be put on pradaxa however pt could not afford it; will be bridged to coumadin once INR therapeutic will be discharged no surgical intervention at this time thank you for allowing us to be part of the care team discussed w/ Dr. Rei Tabares PGY1
[2017-05-18 08:56] LABS: INR 1.1 (0.9-1.2); PROTHROMBIN TIME 11.7 Seconds (9.8-13.1)
[2017-05-18] MEDS: Enoxaparin 120 mg Syringe SC SCH ×2 (10:46→21:30)
--- NOTE | 2017-05-18 14:53 | CP.PCM.PN ---
Subjective - Date & Time of Evaluation Date of Evaluation: 05/18/17 Time of Evaluation: 14:50 - Subjective Subjective: complaining of sharp pain on both calves no shortness of breath Objective - Vital Signs/Intake and Output Vital Signs (last 24 hours): Temp Pulse Resp BP Pulse Ox 97.5 F L 79 18 138/88 97 05/18/17 12:00 05/18/17 12:00 05/18/17 12:00 05/18/17 12:00 05/18/17 12:00 - Medications Medications: Current Medications Acetaminophen (Tylenol 325mg Tab) 650 mg PO Q6 PRN PRN Reason: Pain, moderate (4-7) Amlodipine Besylate (Norvasc) 10 mg PO DAILY [facility] Last Admin: 05/18/17 10:47 Dose: 10 mg Cyanocobalamin (Vitamin B12 1000 Mcg/Ml Inj) 1,000 mcg IM DAILY [facility] Diphenhydramine HCl (Benadryl) 25 mg PO Q6 PRN PRN Reason: Itching / Pruritus Last Admin: 05/17/17 18:18 Dose: 25 mg Enoxaparin Sodium (Lovenox) 110 mg SC Q12 [facility] PRN Reason: Protocol Last Admin: 05/18/17 10:46 Dose: 110 mg Iron Sucrose 200 mg/ Sodium (Chloride) 110 mls @ 110 mls/hr IVPB DAILY [facility] Stop: 05/23/17 09:01 Last Admin: 05/18/17 10:47 Dose: 110 mls/hr Oxycodone HCl (Oxycodone Immediate Release Tab) 10 mg PO Q4H PRN PRN Reason: Pain, severe (8-10) Last Admin: 05/18/17 11:28 Dose: 10 mg Warfarin Sodium (Coumadin) 5 mg PO QD5 ONE PRN Reason: Protocol Stop: 05/18/17 17:01 - Labs Labs: 05/16/17 00:12 05/16/17 00:12 PT 11.7 Seconds (9.8-13.1) 05/18/17 06:17 INR 1.1 (0.9-1.2) 05/18/17 06:17 APTT 27.8 Seconds (25.6-37.1) 05/16/17 00:12 - Constitutional Appears: No Acute Distress - Respiratory Exam Respiratory Exam: Clear to Ausculation Bilateral. absent: Wheezes - Cardiovascular Exam Cardiovascular Exam: REGULAR RHYTHM. absent: Murmur - GI/Abdominal Exam GI & Abdominal Exam: Soft. absent: Tenderness - Extremities Exam Extremities Exam: Calf Tenderness (bilateral, erythematous swellings of both lower legs, dry skin) Assessment and Plan - Assessment and Plan (Free Text) Assessment: b/l LE DVT on therapeutic lovenox with a bridge to coumadin anemia Plan: 1. DVT - continue lovenox 5 mg of coumadin, PT and INR in AM 2. pain control - he is requesting 1 mg of dilaudid iv one dose by saying that it took care of all the pain when he was at the ER. 3. anemia - as per orders of hematology.
--- NOTE | 2017-05-18 22:15 | CP.PCM.PN ---
Subjective - Date & Time of Evaluation Date of Evaluation: 05/18/17 Time of Evaluation: 17:40 - Subjective Subjective: Leg pain improved Objective - Vital Signs/Intake and Output Vital Signs (last 24 hours): Temp Pulse Resp BP Pulse Ox 98.3 F 80 17 141/90 97 05/18/17 19:21 05/18/17 19:21 18 19:21 05/18/17 19:21 05/18/17 19:21 Intake and Output: 05/18/17 05/19/17 18:59 06:59 Intake Total 2600 Balance 2600 - Medications Medications: Current Medications Acetaminophen (Tylenol 325mg Tab) 650 mg PO Q6 PRN PRN Reason: Pain, moderate (4-7) Amlodipine Besylate (Norvasc) 10 mg PO DAILY [facility] Last Admin: 05/18/17 10:47 Dose: 10 mg Cyanocobalamin (Vitamin B12 1000 Mcg/Ml Inj) 1,000 mcg IM DAILY [facility] Last Admin: 05/18/17 17:10 Dose: 1,000 mcg Diphenhydramine HCl (Benadryl) 25 mg PO Q6 PRN PRN Reason: Itching / Pruritus Last Admin: 05/17/17 18:18 Dose: 25 mg Enoxaparin Sodium (Lovenox) 110 mg SC Q12 [facility] PRN Reason: Protocol Last Admin: 05/18/17 21:30 Dose: 110 mg Iron Sucrose 200 mg/ Sodium (Chloride) 110 mls @ 110 mls/hr IVPB DAILY [facility] Stop: 05/23/17 09:01 Last Admin: 05/18/17 10:47 Dose: 110 mls/hr Oxycodone HCl (Oxycodone Immediate Release Tab) 10 mg PO Q4H PRN PRN Reason: Pain, severe (8-10) Last Admin: 05/18/17 19:44 Dose: 10 mg - Labs Labs: 05/16/17 00:12 05/16/17 00:12 PT 11.7 Seconds (9.8-13.1) 05/18/17 06:17 INR 1.1 (0.9-1.2) 05/18/17 06:17 APTT 27.8 Seconds (25.6-37.1) 05/16/17 00:12 - Head Exam Head Exam: ATRAUMATIC - Eye Exam Eye Exam: Normal appearance - ENT Exam ENT Exam: Mucous Membranes Dry - Respiratory Exam Respiratory Exam: NORMAL BREATHING PATTERN - Cardiovascular Exam Cardiovascular Exam: +S1, +S2 - GI/Abdominal Exam GI & Abdominal Exam: Normal Bowel Sounds - Extremities Exam Extremities Exam: Pedal Edema Assessment and Plan (1) DVT (deep venous thrombosis) Assessment & Plan: recurrent lifelong anticoagulation on lovenox with coumadin; goal INR 2-3 Status: Acute (2) Anemia Assessment & Plan: iron and b12 deficiency; on supplementation Status: Acute
[2017-05-19] MEDS: oxyCODONE 10 mg Immediate Release Tab PO PRN ×6 (03:47→23:51)
[2017-05-19 07:09] LABS: PROTHROMBIN TIME 11.4 Seconds (9.8-13.1)
[2017-05-19] MEDS: Enoxaparin 120 mg Syringe SC SCH (09:29)
--- NOTE | 2017-05-19 17:17 | CP.PCM.PN ---
Subjective - Date & Time of Evaluation Date of Evaluation: 05/19/17 Time of Evaluation: 17:14 - Subjective Subjective: pain on lower legs Objective - Vital Signs/Intake and Output Vital Signs (last 24 hours): Temp Pulse Resp BP Pulse Ox 98.2 F 79 20 146/87 97 05/19/17 15:47 05/19/17 15:47 05/19/17 15:47 05/19/17 15:47 05/19/17 15:47 Intake and Output: 05/19/17 05/19/17 06:59 18:59 Intake Total 2100 Balance 2100 - Medications Medications: Current Medications Acetaminophen (Tylenol 325mg Tab) 650 mg PO Q6 PRN PRN Reason: Pain, moderate (4-7) Amlodipine Besylate (Norvasc) 10 mg PO DAILY [facility] Last Admin: 05/19/17 09:30 Dose: 10 mg Cyanocobalamin (Vitamin B12 1000 Mcg/Ml Inj) 1,000 mcg IM DAILY [facility] Last Admin: 05/19/17 09:30 Dose: 1,000 mcg Diphenhydramine HCl (Benadryl) 25 mg PO Q6 PRN PRN Reason: Itching / Pruritus Last Admin: 05/18/17 22:32 Dose: 25 mg Iron Sucrose 200 mg/ Sodium (Chloride) 110 mls @ 110 mls/hr IVPB DAILY [facility] Stop: 05/23/17 09:01 Last Admin: 05/19/17 09:48 Dose: 110 mls/hr Oxycodone HCl (Oxycodone Immediate Release Tab) 10 mg PO Q4H PRN PRN Reason: Pain, severe (8-10) Last Admin: 05/19/17 15:54 Dose: 10 mg - Labs Labs: 05/16/17 00:12 05/16/17 00:12 PT 11.4 Seconds (9.8-13.1) 05/19/17 06:41 INR 1.0 (0.9-1.2) 05/19/17 06:41 APTT 27.8 Seconds (25.6-37.1) 05/16/17 00:12 - Constitutional Appears: No Acute Distress - Respiratory Exam Respiratory Exam: Clear to Ausculation Bilateral - Cardiovascular Exam Cardiovascular Exam: REGULAR RHYTHM. absent: Murmur - GI/Abdominal Exam GI & Abdominal Exam: Soft. absent: Tenderness - Extremities Exam Extremities Exam: Calf Tenderness (erythematous, bilateral swelling) Assessment and Plan - Assessment and Plan (Free Text) Assessment: DVT, b/l lower extremities anemia Plan: Yesterday at 5 PM, he received one dose of iv dilaudid. he is on 10 mg of oxycodone every four hours for pain. continue lovenox a bridge to coumadin still INR is low will give 7.5 mg of coumadin today repeat INR tomorrow.
--- NOTE | 2017-05-19 18:26 | CP.PCM.PN ---
Subjective - Date & Time of Evaluation Date of Evaluation: 05/19/17 Time of Evaluation: 18:00 - Subjective Subjective: Leg swelling imnproved INR subtherapeutic; increased coumadin dosing noted. Objective - Vital Signs/Intake and Output Vital Signs (last 24 hours): Temp Pulse Resp BP Pulse Ox 98.2 F 79 20 146/87 97 05/19/17 15:47 05/19/17 15:47 05/19/17 15:47 05/19/17 15:47 05/19/17 15:47 Intake and Output: 05/19/17 05/19/17 06:59 18:59 Intake Total 2100 Balance 2100 - Medications Medications: Current Medications Acetaminophen (Tylenol 325mg Tab) 650 mg PO Q6 PRN PRN Reason: Pain, moderate (4-7) Amlodipine Besylate (Norvasc) 10 mg PO DAILY [facility] Last Admin: 05/19/17 09:30 Dose: 10 mg Cyanocobalamin (Vitamin B12 1000 Mcg/Ml Inj) 1,000 mcg IM DAILY [facility] Last Admin: 05/19/17 09:30 Dose: 1,000 mcg Diphenhydramine HCl (Benadryl) 25 mg PO Q6 PRN PRN Reason: Itching / Pruritus Last Admin: 05/18/17 22:32 Dose: 25 mg Iron Sucrose 200 mg/ Sodium (Chloride) 110 mls @ 110 mls/hr IVPB DAILY [facility] Stop: 05/23/17 09:01 Last Admin: 05/19/17 09:48 Dose: 110 mls/hr Oxycodone HCl (Oxycodone Immediate Release Tab) 10 mg PO Q4H PRN PRN Reason: Pain, severe (8-10) Last Admin: 05/19/17 15:54 Dose: 10 mg - Labs Labs: 05/16/17 00:12 05/16/17 00:12 PT 11.4 Seconds (9.8-13.1) 05/19/17 06:41 INR 1.0 (0.9-1.2) 05/19/17 06:41 APTT 27.8 Seconds (25.6-37.1) 05/16/17 00:12 - Head Exam Head Exam: ATRAUMATIC - Eye Exam Eye Exam: Normal appearance - ENT Exam ENT Exam: Mucous Membranes Dry - Respiratory Exam Respiratory Exam: NORMAL BREATHING PATTERN - Cardiovascular Exam Cardiovascular Exam: +S1, +S2 - GI/Abdominal Exam GI & Abdominal Exam: Normal Bowel Sounds - Extremities Exam Extremities Exam: Pedal Edema Assessment and Plan (1) DVT (deep venous thrombosis) Assessment & Plan: recurrent on therapeutic anticoagulation lovenox bridging with coumadin; goal INR 2-3 Status: Acute (2) Anemia Assessment & Plan: B12 and iron deficiency on supplementation Status: Acute
[2017-05-19] MEDS ORDERED: Enoxaparin 120 mg Syringe SC STA (20:40)
[2017-05-20] MEDS: oxyCODONE 10 mg Immediate Release Tab PO PRN ×5 (03:57→20:02)
[2017-05-20 05:54] LABS: BASO % 0.7 % (0.0-2.0); EOS # 0.1 K/uL (0.0-0.7); EOS % 2.9 % (0.0-4.0); HEMOGLOBIN 12.7 g/dL (12.0-18.0); LYMPH # 1.3 K/uL (1.0-4.3); LYMPH % 26.4 % (20.0-40.0); MEAN CELL VOLUME 83.7 fl (80.0-94.0); MEAN CORPUSCULAR HEMOGLOBIN 27.2 pg (27.0-31.0); MEAN CORPUSCULAR HGB CONC 32.5 g/dL (33.0-37.0); MEAN PLATELET VOLUME 7.9 fl (7.2-11.7); MONO # 0.6 K/uL (0.0-0.8); MONO % 11.4 % (0.0-10.0); NEUT # 2.9 K/uL (1.8-7.0); NEUT % 58.6 % (50.0-75.0); NRBC % 0.1 % (0.0-0.0); RBC 4.68 Mil/uL (4.40-5.90); RED CELL DISTRIBUTION WIDTH 16.1 % (11.5-14.5)
[2017-05-20 06:14] LABS: BLOOD UREA NITROGEN 15 mg/dl (9-20); CALCIUM 9.2 mg/dL (8.4-10.2); GFR AFRICAN-AMERICAN > 60; GFR NON-AFRICAN AMERICAN > 60
[2017-05-20 06:54] LABS: PROTHROMBIN TIME 11.3 Seconds (9.8-13.1)
--- NOTE | 2017-05-20 07:42 | CP.PCM.PN ---
Subjective - Date & Time of Evaluation Date of Evaluation: 05/20/17 Time of Evaluation: 07:40 - Subjective Subjective: pain on both lower legs, more on left side swelling resolving Objective - Vital Signs/Intake and Output Vital Signs (last 24 hours): Temp Pulse Resp BP Pulse Ox 98.0 F 70 18 117/71 98 05/20/17 05:39 05/20/17 05:39 05/20/17 05:39 05/20/17 05:39 05/20/17 05:39 - Medications Medications: Current Medications Acetaminophen (Tylenol 325mg Tab) 650 mg PO Q6 PRN PRN Reason: Pain, moderate (4-7) Amlodipine Besylate (Norvasc) 10 mg PO DAILY [facility] Last Admin: 05/19/17 09:30 Dose: 10 mg Cyanocobalamin (Vitamin B12 1000 Mcg/Ml Inj) 1,000 mcg IM DAILY [facility] Last Admin: 05/19/17 09:30 Dose: 1,000 mcg Diphenhydramine HCl (Benadryl) 25 mg PO Q6 PRN PRN Reason: Itching / Pruritus Last Admin: 05/18/17 22:32 Dose: 25 mg Iron Sucrose 200 mg/ Sodium (Chloride) 110 mls @ 110 mls/hr IVPB DAILY [facility] Stop: 05/23/17 09:01 Last Admin: 05/19/17 09:48 Dose: 110 mls/hr Oxycodone HCl (Oxycodone Immediate Release Tab) 10 mg PO Q4H PRN PRN Reason: Pain, severe (8-10) Last Admin: 05/20/17 03:57 Dose: 10 mg - Labs Labs: 05/20/17 04:25 05/20/17 04:25 PT 11.3 Seconds (9.8-13.1) 05/20/17 04:25 INR 1.0 (0.9-1.2) 05/20/17 04:25 APTT 27.8 Seconds (25.6-37.1) 05/16/17 00:12 - Constitutional Appears: No Acute Distress - Respiratory Exam Respiratory Exam: Clear to Ausculation Bilateral. absent: Wheezes - Cardiovascular Exam Cardiovascular Exam: REGULAR RHYTHM. absent: Murmur - GI/Abdominal Exam GI & Abdominal Exam: Soft. absent: Tenderness Assessment and Plan - Assessment and Plan (Free Text) Assessment: DVT, bilateral lower extremities lovenox bridging to coumadin still subtherapeutic INR level Plan: continue lovenox will increase coumadin to 10 mg today. repeat INR in AM.
[2017-05-20 10:16] LABS: INR 1.1 (0.9-1.2); PROTHROMBIN TIME 11.7 Seconds (9.8-13.1)
[2017-05-20] MEDS: Enoxaparin 120 mg Syringe SC SCH ×2 (10:24→21:08)
--- NOTE | 2017-05-20 23:16 | CP.PCM.PN ---
Subjective - Date & Time of Evaluation Date of Evaluation: 05/20/17 Time of Evaluation: 20:20 - Subjective Subjective: Has some tingling in legs Objective - Vital Signs/Intake and Output Vital Signs (last 24 hours): Temp Pulse Resp BP Pulse Ox 98.2 F 87 20 131/71 96 05/20/17 19:16 05/20/17 21:00 05/20/17 19:16 05/20/17 19:16 05/20/17 19:16 Intake and Output: 05/20/17 05/21/17 18:59 06:59 Intake Total 840 Balance 840 - Medications Medications: Current Medications Acetaminophen (Tylenol 325mg Tab) 650 mg PO Q6 PRN PRN Reason: Pain, moderate (4-7) Amlodipine Besylate (Norvasc) 10 mg PO DAILY [facility] Last Admin: 05/20/17 09:28 Dose: 10 mg Cyanocobalamin (Vitamin B12 1000 Mcg/Ml Inj) 1,000 mcg IM DAILY [facility] Last Admin: 05/20/17 09:29 Dose: 1,000 mcg Diphenhydramine HCl (Benadryl) 25 mg PO Q6 PRN PRN Reason: Itching / Pruritus Last Admin: 05/20/17 21:11 Dose: 25 mg Enoxaparin Sodium (Lovenox) 110 mg SC Q12 [facility] PRN Reason: Protocol Last Admin: 05/20/17 21:08 Dose: 110 mg Iron Sucrose 200 mg/ Sodium (Chloride) 110 mls @ 110 mls/hr IVPB DAILY [facility] Stop: 05/23/17 09:01 Last Admin: 05/20/17 13:31 Dose: 110 mls/hr Oxycodone HCl (Oxycodone Immediate Release Tab) 10 mg PO Q4H PRN PRN Reason: Pain, severe (8-10) Last Admin: 05/20/17 20:02 Dose: 10 mg - Labs Labs: 05/20/17 04:25 05/20/17 04:25 PT 11.7 Seconds (9.8-13.1) 05/20/17 09:03 INR 1.1 (0.9-1.2) 05/20/17 09:03 APTT 27.8 Seconds (25.6-37.1) 05/16/17 00:12 - Head Exam Head Exam: ATRAUMATIC - Eye Exam Eye Exam: Normal appearance - ENT Exam ENT Exam: Mucous Membranes Dry - Respiratory Exam Respiratory Exam: NORMAL BREATHING PATTERN - Cardiovascular Exam Cardiovascular Exam: +S1, +S2 - GI/Abdominal Exam GI & Abdominal Exam: Normal Bowel Sounds Assessment and Plan (1) DVT (deep venous thrombosis) Assessment & Plan: recurrent life long anticoagulation on lovenox with coumadin bridging goal INR 2-3 Status: Acute (2) Anemia Assessment & Plan: b12 and iron deficiency on supplementation Status: Acute
[2017-05-21] MEDS: oxyCODONE 10 mg Immediate Release Tab PO PRN ×6 (04:09→20:14)
[2017-05-21 07:44] LABS: INR 1.2 (0.9-1.2); PROTHROMBIN TIME 13.4 Seconds (9.8-13.1)
[2017-05-21] MEDS: Enoxaparin 120 mg Syringe SC SCH ×2 (08:13→21:04)
[2017-05-21 12:16] VITALS: RESP 18
--- NOTE | 2017-05-21 17:00 | CP.PCM.PN ---
Subjective - Date & Time of Evaluation Date of Evaluation: 05/21/17 Time of Evaluation: 16:57 - Subjective Subjective: still pain and tingling on both calves, more on left side painful swelling of right hand from yesterday, iv site Objective - Vital Signs/Intake and Output Vital Signs (last 24 hours): Temp Pulse Resp BP Pulse Ox 98.6 F 91 H 18 137/85 97 05/21/17 15:40 05/21/17 15:40 05/21/17 15:40 05/21/17 15:40 05/21/17 15:40 - Medications Medications: Current Medications Acetaminophen (Tylenol 325mg Tab) 650 mg PO Q6 PRN PRN Reason: Pain, moderate (4-7) Amlodipine Besylate (Norvasc) 10 mg PO DAILY [facility] Last Admin: 05/21/17 08:16 Dose: 10 mg Cyanocobalamin (Vitamin B12 1000 Mcg/Ml Inj) 1,000 mcg IM DAILY [facility] Last Admin: 05/21/17 12:14 Dose: 1,000 mcg Diphenhydramine HCl (Benadryl) 25 mg PO Q6 PRN PRN Reason: Itching / Pruritus Last Admin: 05/21/17 12:12 Dose: 25 mg Enoxaparin Sodium (Lovenox) 110 mg SC Q12 [facility] PRN Reason: Protocol Last Admin: 05/21/17 08:13 Dose: 110 mg Ferrous Sulfate (Feosol) 325 mg PO BID [facility] Last Admin: 05/21/17 12:13 Dose: 325 mg Oxycodone HCl (Oxycodone Immediate Release Tab) 10 mg PO Q4H PRN PRN Reason: Pain, severe (8-10) Last Admin: 05/21/17 16:18 Dose: 10 mg Warfarin Sodium (Coumadin) 10 mg PO QD5 [facility] PRN Reason: Protocol Stop: 05/21/17 17:01 Warfarin Sodium (Coumadin) 2.5 mg PO 1700 ONE Stop: 05/21/17 17:01 - Labs Labs: 05/20/17 04:25 05/20/17 04:25 PT 13.4 Seconds (9.8-13.1) H 05/21/17 04:30 INR 1.2 (0.9-1.2) 05/21/17 04:30 APTT 27.8 Seconds (25.6-37.1) 05/16/17 00:12 - Constitutional Appears: No Acute Distress - Respiratory Exam Respiratory Exam: Clear to Ausculation Bilateral - Cardiovascular Exam Cardiovascular Exam: REGULAR RHYTHM. absent: Murmur - Extremities Exam Extremities Exam: Calf Tenderness (bilateral, erythematous swelling of right dorsum hand) Assessment and Plan - Assessment and Plan (Free Text) Assessment: DVT, b/l lower extremities recurrent still subtherapeutic INR of 1.2 anemia cellulitis of right hand Plan: 12.5 mg of coumadin today repeat INR in AM. continue lovenox po antibiotics for cellulitis
--- NOTE | 2017-05-21 22:32 | CP.PCM.PN ---
Subjective - Date & Time of Evaluation Date of Evaluation: 05/21/17 Time of Evaluation: 20:00 - Subjective Subjective: No complaints. 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 Objective - Vital Signs/Intake and Output Vital Signs (last 24 hours): Temp Pulse Resp BP Pulse Ox 98.5 F 88 18 127/87 97 05/21/17 19:19 05/21/17 19:19 05/21/17 19:19 05/21/17 19:19 05/21/17 19:19 Intake and Output: 05/21/17 05/22/17 18:59 06:59 Intake Total 1400 Balance 1400 - Medications Medications: Current Medications Acetaminophen (Tylenol 325mg Tab) 650 mg PO Q6 PRN PRN Reason: Pain, moderate (4-7) Amlodipine Besylate (Norvasc) 10 mg PO DAILY [facility] Last Admin: 05/21/17 08:16 Dose: 10 mg Cephalexin Monohydrate (Keflex) 500 mg PO Q6 [facility] PRN Reason: Protocol Last Admin: 05/21/17 21:04 Dose: 500 mg Cyanocobalamin (Vitamin B12 1000 Mcg/Ml Inj) 1,000 mcg IM DAILY [facility] Last Admin: 05/21/17 12:14 Dose: 1,000 mcg Diphenhydramine HCl (Benadryl) 25 mg PO Q6 PRN PRN Reason: Itching / Pruritus Last Admin: 05/21/17 12:12 Dose: 25 mg Enoxaparin Sodium (Lovenox) 110 mg SC Q12 [facility] PRN Reason: Protocol Last Admin: 05/21/17 21:04 Dose: 110 mg Ferrous Sulfate (Feosol) 325 mg PO BID [facility] Last Admin: 05/21/17 17:53 Dose: 325 mg Oxycodone HCl (Oxycodone Immediate Release Tab) 10 mg PO Q4H PRN PRN Reason: Pain, severe (8-10) Last Admin: 05/21/17 20:14 Dose: 10 mg - Labs Labs: 05/20/17 04:25 05/20/17 04:25 PT 13.4 Seconds (9.8-13.1) H 05/21/17 04:30 INR 1.2 (0.9-1.2) 05/21/17 04:30 APTT 27.8 Seconds (25.6-37.1) 05/16/17 00:12 - Head Exam Head Exam: ATRAUMATIC - Eye Exam Eye Exam: Normal appearance - ENT Exam ENT Exam: Mucous Membranes Dry - Respiratory Exam Respiratory Exam: NORMAL BREATHING PATTERN - Cardiovascular Exam Cardiovascular Exam: +S1, +S2 - GI/Abdominal Exam GI & Abdominal Exam: Normal Bowel Sounds - Extremities Exam Extremities Exam: Pedal Edema Assessment and Plan (1) DVT (deep venous thrombosis) Assessment & Plan: recurrent on lovenox with coumadin; goal INR 2-3 Status: Acute (2) Anemia Assessment & Plan: b12 and iron deficiency on supplementation Status: Acute
[2017-05-22] MEDS: oxyCODONE 10 mg Immediate Release Tab PO PRN ×4 (00:14→12:25)
[2017-05-22 05:43] LABS: INR 1.3 (0.9-1.2); PROTHROMBIN TIME 14.2 Seconds (9.8-13.1)
[2017-05-22] MEDS: Enoxaparin 120 mg Syringe SC SCH (09:34)
--- NOTE | 2017-05-22 11:34 | CP.PCM.PCO ---
Assessment & Plan - Assessment and Plan (Free Text) Assessment: pt. doing well, ambulating in hallway , denies sob, cp, fever chills INR 1.3 today- Rx for xarelto sent to [facility] pharmacy and medication is covered 100% Meds to bed provided, patient has all rx for meds at bedside pt. will f/u with outpatient pt. cleared to start xarelto by and then d/c to home today Xarelto 15 mg po bid x 3 weeks, then switch to 20 mg po daily -Instructions provided to patient who conveys understanding cont. keflex f/u with outpatient
[2017-05-22 12:15] VITALS: BP 139/89; PULSE 91; TEMP 97.8; O2SAT 98
--- NOTE | 2017-05-22 20:32 | CP.PCM.PN ---
Subjective - Date & Time of Evaluation Date of Evaluation: 05/22/17 Time of Evaluation: 14:00 - Subjective Subjective: less pain on legs walking on the floor Objective - Vital Signs/Intake and Output Vital Signs (last 24 hours): Temp Pulse Resp BP Pulse Ox 97.8 F 91 H 18 139/89 98 05/22/17 12:00 05/22/17 12:00 05/22/17 12:00 05/22/17 12:00 05/22/17 12:00 Intake and Output: 05/22/17 05/23/17 18:59 06:59 Intake Total 1200 Balance 1200 - Labs Labs: 05/20/17 04:25 05/20/17 04:25 PT 14.2 Seconds (9.8-13.1) H 05/22/17 04:20 INR 1.3 (0.9-1.2) H 05/22/17 04:20 APTT 27.8 Seconds (25.6-37.1) 05/16/17 00:12 - Constitutional Appears: Non-toxic - Respiratory Exam Respiratory Exam: Clear to Ausculation Bilateral. absent: Wheezes - Cardiovascular Exam Cardiovascular Exam: REGULAR RHYTHM. absent: Murmur - Extremities Exam Extremities Exam: Calf Tenderness (erythematous swellings on both calves) Assessment and Plan - Assessment and Plan (Free Text) Assessment: b/l LE DVT anemia cellulitis of right hand Plan: INR is still subtherapeutic switch to Xarelto discharge patient home out patient follow up in two days
== END 2017-05-22 14:30 | disposition home or self-care (01) | DRG 130 ==
LOC: H.ER 20:28 → H.ERHOLD 05-16 04:07 → H.TEL 05-16 05:30 → OBSVTOIN 05-16 11:31 → H.TEL 05-17 14:29
PROVIDERS: ADMIT Internal Medicine; ATTEND Internal Medicine
DX: I82.403 Acute embolism and thrombosis of unspecified deep veins of lower extremity, bilateral (principal); L03.113 Cellulitis of right upper limb; N18.9 Chronic kidney disease, unspecified; I12.9 Hypertensive chronic kidney disease with stage 1 through stage 4 chronic kidney disease, or unspecified chronic kidney disease; D64.9 Anemia, unspecified; R79.1 Abnormal coagulation profile; F17.210 Nicotine dependence, cigarettes, uncomplicated; Z86.711 Personal history of pulmonary embolism; Z86.718 Personal history of other venous thrombosis and embolism; Z79.01 Long term (current) use of anticoagulants; Z87.442 Personal history of urinary calculi

== ENCOUNTER 2017-05-28 19:37 | Inpatient (IN) | payer OTHER ==
[2017-05-28 19:37] VITALS: BMI 29.1
--- NOTE | 2017-05-28 22:11 | ED PDOC ---
Lower Extremity Pain/Injury Time Seen by Provider: 05/28/17 20:48 Chief Complaint (Nursing): Lower Extremity Problem/Injury Chief Complaint (Provider): Lower Extremity Problem/Injury History Per: Patient History/Exam Limitations: no limitations Onset/Duration Of Symptoms: Days (x3) Current Symptoms Are (Timing): Still Present Additional Complaint(s): 56 year old, male with medical history of DVT, presents to the emergency department with a complaint of bilateral lower extremity pain and swelling ongoing for 3 days. Patient was recently admitted for DVT and discharged with Coumadin, which he reported compliance. PMD: Wesley Perez MD Past Medical History Reviewed: Historical Data, Nursing Documentation, Vital Signs Vital Signs: Last Vital Signs Temp 98.1 F 05/28/17 20:28 Pulse 93 H 05/28/17 20:28 Resp 16 05/28/17 20:28 BP 149/90 05/28/17 20:28 Pulse Ox 100 05/28/17 20:28 - Medical History PMH: HTN, Kidney Stones, Pulmonary Embolism, Chronic Kidney Disease Denies: Depression, HIV - Surgical History Surgical History: Hernia Repair - Family History Family History: States: Unknown Family Hx - Social History Current smoker - smoking cessation education provided: No Ex-Smoker (has not smoked in the last 12 months): No Alcohol: None Drugs: Denies - Immunization History Hx Tetanus Toxoid Vaccination: No Hx Influenza Vaccination: No Hx Pneumococcal Vaccination: No - Home Medications Home Medications: Ambulatory Orders Medication Instructions Recorded Amlodipine Besylate [Norvasc] 10 mg PO DAILY #10 tab 02/03/15 Cephalexin [Keflex] 500 mg PO Q6 #24 cap 05/22/17 Ferrous Sulfate [Feosol] 325 mg PO BID #60 tab 05/22/17 Lactobacillus Acidophilus [Bacid 1 cap PO BID #10 cap 05/22/17 Acidophilus] Rivaroxaban [Xarelto] 15 mg PO BIDWM #42 tab 05/22/17 oxyCODONE/Acetaminophen [Percocet 1 ea PO Q6 #8 tab 05/22/17 5/325 mg Tab] - Allergies Allergies/Adverse Reactions: Allergies Allergy/AdvReac Type Severity Reaction Status Date / Time NSAIDS (Non-Steroidal Allergy RASH Verified 05/28/17 20:28 Anti-Inflamma Review of Systems ROS Statement: Except As Marked, All Systems Reviewed And Found Negative Musculoskeletal: Positive for: Leg Pain (and swelling bilaterally) Physical Exam - Reviewed Nursing Documentation Reviewed: Yes Vital Signs Reviewed: Yes - Physical Exam Appears: Positive for: No Acute Distress Head Exam: Positive for: ATRAUMATIC, NORMAL INSPECTION, NORMOCEPHALIC Cardiovascular/Chest: Positive for: Regular Rate, Rhythm, Chest Non Tender Respiratory: Positive for: Normal Breath Sounds. Negative for: Decreased Breath Sounds, Respiratory Distress Extremity: Positive for: Pedal Edema (2+ bilaterally with erythema, warmth and induration from knees to toes), Other. Negative for: Deformity (lower) Neurologic/Psych: Positive for: Alert, Oriented - Laboratory Results Result Diagrams: 05/28/17 22:54 05/28/17 22:54 - ECG O2 Sat by Pulse Oximetry: 100 (RA) Pulse Ox Interpretation: Normal Medical Decision Making Medical Decision Making: Initial Impression: Lower extremity swelling in setting of DVT Initial Plan: * CMP * Drug screen, urine * Lact acid, plasma * CBC * PTT * PT * Toradol 10mg IV * Blood culture * UA * US duplex LE US Duplex FINDINGS: Right deep veins: Lack of compressibility of right superficial femoral vein. No significant flow on color or spectral Doppler imaging. Incomplete compressibility of right popliteal vein. Partial flow on color or spectral Doppler imaging. Right superficial veins: Unremarkable. Left deep veins: Lack of compressibility of the left popliteal vein. No significant flow on color or spectral Doppler imaging. Left superficial veins: Unremarkable. Soft tissues: Edema within soft tissues. IMPRESSION: 1. Occlusive and nonocclusive deep vein thrombosis as above. 2. Incidental/non-acute findings are described above. Lovenax [address] Grijalva was consulted after Dr. Perez was unreachable. Patient will be admitted to the service of Dr. Grijalva in med surg. Diagnosis is bilateral DVTs of lower extremities. Scribe Attestation: Documented by Mary Grace Valdez, acting as a scribe for Bala Uriarte MD. Provider Scribe Attestation: All medical record entries made by the Scribe were at my direction and personally dictated by me. I have reviewed the chart and agree that the record accurately reflects my personal performance of the history, physical exam, medical decision making, and the department course for this patient. I have also personally directed, reviewed, and agree with the discharge instructions and disposition. Disposition - Clinical Impression Clinical Impression: DVT, bilateral lower limbs - Patient ED Disposition Is Patient to be Admitted: Yes Discussed With : Eduard Grijalva Doctor Will See Patient In The: Hospital - Disposition Disposition Time: 23:55 Condition: STABLE Patient Signed Over To: Eduard Grijalva - Pt Status Changed To: Hospital Disposition Of: Inpatient - Admit Certification Admit to Inpatient:: After my assessment, the patient will require hospitalization for at least two midnights. This is because of the severity of symptoms shown, intensity of services needed, and/or the medical risk in this patient being treated as an outpatient.
[2017-05-28] MEDS ORDERED: Oxycodone/Acetaminophen 5/325 mg Tab PO STA (22:21)
[2017-05-28 23:04] LABS: BASO % 0.7 % (0.0-2.0); EOS # 0.2 K/uL (0.0-0.7); EOS % 3.4 % (0.0-4.0); HEMOGLOBIN 11.6 g/dL (12.0-18.0); LYMPH # 1.1 K/uL (1.0-4.3); LYMPH % 20.2 % (20.0-40.0); MEAN CELL VOLUME 83.5 fl (80.0-94.0); MEAN CORPUSCULAR HEMOGLOBIN 28.1 pg (27.0-31.0); MEAN CORPUSCULAR HGB CONC 33.6 g/dL (33.0-37.0); MEAN PLATELET VOLUME 7.5 fl (7.2-11.7); MONO # 0.5 K/uL (0.0-0.8); MONO % 8.9 % (0.0-10.0); NEUT # 3.6 K/uL (1.8-7.0); NEUT % 66.8 % (50.0-75.0); NRBC % 0.1 % (0.0-0.0); RBC 4.13 Mil/uL (4.40-5.90); RED CELL DISTRIBUTION WIDTH 16.9 % (11.5-14.5); WHITE BLOOD COUNT 5.4 K/uL (4.8-10.8)
[2017-05-28 23:15] LABS: INR 1.4 (0.9-1.2); PROTHROMBIN TIME 15.5 Seconds (9.8-13.1)
[2017-05-28 23:21] LABS: ALBUMIN 3.7 g/dL (3.5-5.0); ALT/SGPT 35 U/L (21-72); AST/SGOT 22 U/L (17-59); BLOOD UREA NITROGEN 8 mg/dl (9-20); CALCIUM 8.7 mg/dL (8.4-10.2); GFR AFRICAN-AMERICAN > 60; GFR NON-AFRICAN AMERICAN > 60
--- NOTE | 2017-05-28 23:42 | US ---
EXAM: US Duplex Bilateral Lower Extremity Veins CLINICAL HISTORY: 56 years old, male; Signs and symptoms; Swelling of limb; Lower extremity, bilateral TECHNIQUE: Real-time ultrasound scan of the veins of the bilateral lower extremities with color Doppler flow, spectral waveform analysis and compression. COMPARISON: US - DUPLEX LOWER EXTRM VEIN BILAT 2017-05-15 23:51 FINDINGS: Right deep veins: Lack of compressibility of right superficial femoral vein. No significant flow on color or spectral Doppler imaging. Incomplete compressibility of right popliteal vein. Partial flow on color or spectral Doppler imaging. Right superficial veins: Unremarkable. Left deep veins: Lack of compressibility of the left popliteal vein. No significant flow on color or spectral Doppler imaging. Left superficial veins: Unremarkable. Soft tissues: Edema within soft tissues. IMPRESSION: 1. Occlusive and nonocclusive deep vein thrombosis as above. 2. Incidental/non-acute findings are described above.
[2017-05-28] MEDS ORDERED: Oxycodone/Acetaminophen 5/325 mg Tab ONE (23:51)
[2017-05-29] MEDS ORDERED: Enoxaparin 120 mg Syringe SC STA (00:01)
[2017-05-29] MEDS ORDERED: Morphine 4 MG/ML VIAL IVP ONE ×2 (01:14→03:03)
[2017-05-29] MEDS ORDERED: Morphine 4 MG/ML VIAL ONE (01:21)
--- NOTE | 2017-05-29 08:18 | CP.PCM.HP ---
History of Present Illness - History of Present Illness History of Present Illness: Patient evaluated with Dr Grijalva this morning. 56 year old, male with medical history of DVT, presented to the emergency department c/o of bilateral lower extremity pain and swelling ongoing for 3 days. Patient was recently admitted for DVT and discharged with Coumadin, which he reported compliance. He states that he has been applying lotion to both leg bt still develops severe skin dryness. Patient requests oxycodone to control his DVT related pain as he states that he has been on it for the past year for chronic B/L LE pain and feels no relief with other pain meds including Tylenol# 3. Al so patient request his diet to be change to regular diet. PMD: Wesley Perez MD Present on Admission - Present on Admission Any Indicators Present on Admission: Yes History of DVT/PE: Yes Review of Systems - Review of Systems All systems: reviewed and no additional remarkable complaints except - Cardiovascular Cardiovascular: Leg Edema, Pedal Edema - Integumentary Integumentary: Rash (B/L LE chronic) Past Patient History - Past Medical History & Family History Past Medical History?: Yes - Past Social History Smoking Status: Former Smoker - CARDIAC Hx Cardiac Disorders: Yes Hx Hypertension: Yes Hx Peripheral Edema: Yes - PULMONARY Hx Respiratory Disorders: Yes Hx Pulmonary Embolism: Yes - NEUROLOGICAL Hx Neurological Disorder: No - HEENT Hx HEENT Problems: No - RENAL Hx Chronic Kidney Disease: Yes Hx Kidney Stones: Yes - ENDOCRINE/METABOLIC Hx Endocrine Disorders: No - HEMATOLOGICAL/ONCOLOGICAL Hx Blood Disorders: No Hx AIDS: No Hx Blood Transfusions: No Hx Human Immunodeficiency Virus (HIV): No - INTEGUMENTARY Hx Dermatological Problems: Yes Hx Cellulitis: Yes - MUSCULOSKELETAL/RHEUMATOLOGICAL Hx Musculoskeletal Disorders: Yes Hx Arthritis: No Hx Back Pain: Yes Hx Falls: No - GASTROINTESTINAL Hx Gastrointestinal Disorders: No Hx Constipation: No - GENITOURINARY/GYNECOLOGICAL Hx Genitourinary Disorders: No - PSYCHIATRIC Hx Anxiety: Yes Hx Depression: No Hx Substance Use: Yes - SURGICAL HISTORY Hx Surgeries: Yes Hx Herniorrhaphy: Yes Hx Orthopedic Surgery: Yes (L KNEE) Other/Comment: cornea transplant right eye - ANESTHESIA Hx Anesthesia: Yes Hx Anesthesia Reactions: No Hx Malignant Hyperthermia: No Has any member of the family had a problem w/ anesthesia?: No Meds Allergies/Adverse Reactions: Allergies Allergy/AdvReac Type Severity Reaction Status Date / Time NSAIDS (Non-Steroidal Allergy RASH Verified 05/28/17 20:28 Anti-Inflamma Physical Exam - Constitutional Appears: Non-toxic, No Acute Distress - Eye Exam Eye Exam: EOMI, PERRL - ENT Exam ENT Exam: Mucous Membranes Moist - Respiratory Exam Respiratory Exam: Clear to Auscultation Bilateral, NORMAL BREATHING PATTERN. absent: Decreased Breath Sounds, Rales - Cardiovascular Exam Cardiovascular Exam: REGULAR RHYTHM, +S1, +S2. absent: Gallop - GI/Abdominal Exam GI & Abdominal Exam: Normal Bowel Sounds, Soft. absent: Tenderness - Extremities Exam Extremities exam: Positive for: pedal edema, tenderness. Negative for: normal inspection (B/L LE redness, swelling and cracked skin below knees) - Neurological Exam Neurological exam: Alert, Oriented x3 - Skin Skin Exam: Warm Results - Vital Signs Recent Vital Signs: Last Vital Signs Temp 98.2 F 05/29/17 05:23 Pulse 79 05/29/17 05:23 Resp 16 05/29/17 05:23 BP 125/74 05/29/17 05:23 Pulse Ox 96 05/29/17 05:23 - Labs Result Diagrams: 05/28/17 22:54 05/28/17 22:54 Labs: Laboratory Results - last 24 hr 05/28/17 05/28/17 05/28/17 22:54 22:54 22:54 WBC 5.4 RBC 4.13 L Hgb 11.6 L Hct 34.5 L MCV 83.5 MCH 28.1 MCHC 33.6 RDW 16.9 H Plt Count 191 MPV 7.5 Neut % (Auto) 66.8 Lymph % (Auto) 20.2 [place] % (Auto) 8.9 Eos % (Auto) 3.4 Baso % (Auto) 0.7 Neut # (Auto) 3.6 Lymph # (Auto) 1.1 [place] # (Auto) 0.5 Eos # (Auto) 0.2 Baso # (Auto) 0.0 PT INR APTT Sodium 138 Potassium 4.2 Chloride 102 Carbon Dioxide 24 Anion Gap 16 BUN 8 L Creatinine 0.7 L Est GFR ( Amer) > 60 Est GFR (Non-Af Amer) > 60 Random Glucose 101 Lactic Acid 1.2 Calcium 8.7 Total Bilirubin 0.3 AST 22 ALT 35 Alkaline Phosphatase 88 Total Protein 7.3 Albumin 3.7 Globulin 3.6 Albumin/Globulin Ratio 1.0 05/28/17 22:54 WBC RBC Hgb Hct MCV MCH MCHC RDW Plt Count MPV Neut % (Auto) Lymph % (Auto) [place] % (Auto) Eos % (Auto) Baso % (Auto) Neut # (Auto) Lymph # (Auto) [place] # (Auto) Eos # (Auto) Baso # (Auto) PT 15.5 H INR 1.4 H APTT 35.0 Sodium Potassium Chloride Carbon Dioxide Anion Gap BUN Creatinine Est GFR ( Amer) Est GFR (Non-Af Amer) Random Glucose Lactic Acid Calcium Total Bilirubin AST ALT Alkaline Phosphatase Total Protein Albumin Globulin Albumin/Globulin Ratio Assessment & Plan - Assessment and Plan (Free Text) Assessment: 56 y/o M admitted for worsening B/L DVT B/L LE DVT Chronic LE US: Occlusive and Non-Occlusive DVT B/L Anticoagulation: Patient was on maintenance dose of Xarelto at home. Will increase Xarelto to 15 mg daily for now Hem-onc consult Pain management consult C/w percocet PRN for now awaiting pain management recs
[2017-05-29] MEDS: Oxycodone/Acetaminophen 5/325 mg Tab PO SCH ×2 (09:00→17:10)
--- NOTE | 2017-05-29 09:25 | RAD ---
HISTORY: admit COMPARISON: 05/15/2007 teen, 06/03/2015 and 07/07/2013 FINDINGS: LUNGS: No dense consolidation. PLEURA: No significant pleural effusion identified, no pneumothorax apparent. CARDIOVASCULAR: mild cardiomegaly. Overall central pulmonary venous congestion similar OSSEOUS STRUCTURES: Thoracic spondylosis. Bilateral shoulder arthrosis VISUALIZED UPPER ABDOMEN: Normal. OTHER FINDINGS: None. IMPRESSION: Similar cardiovascular status.
--- NOTE | 2017-05-29 09:26 | CP.PCM.CON ---
History of Present Illness - History of Present Illness History of Present Illness: Vascular Surgery Consult Note - Dr. Minaya 56 y/o male with PMHx of B/L DVT, PE, and HTN seen at bedside this morning for vascular surgery consultation s/p bilateral lower extremity DVT. Pt was recently hospitalized two weeks ago with same problem and evaluated by surgical team. He was scheduled for IVC filter placement but refused on day of procedure. He was sent home with medications, which he states he has been taking. However, pt states the pain and swelling have been getting worse in the legs in the last two weeks since his discharge. He admits to occasional chest tightness over the last two weeks, intermittent in nature. He reiterates that he was on Coumadin for several years until approx 4-6 months ago, when he went to a new clinic and was told by his doctor he could stop taking it. Denies F/C/N /V. Denies CP/SOB at present. States he has read a lot about the IVC filter and is hesitant to proceed given the risks. PSH:L knee surgery x5, L inguinal hernia repair, R corneal transplant All: NSAIDS (urticaria) FamHx: noncontributory SocHx: social EtOH; 4 cigs/day (formerly 1 pack/day for 30 years); denies drug use Review of Systems - Review of Systems All systems: reviewed and no additional remarkable complaints except (per HPI) Past Patient History - Past Medical History & Family History Past Medical History?: Yes - Past Social History Smoking Status: Former Smoker - CARDIAC Hx Cardiac Disorders: Yes Hx Hypertension: Yes Hx Peripheral Edema: Yes - PULMONARY Hx Respiratory Disorders: Yes Hx Pulmonary Embolism: Yes - NEUROLOGICAL Hx Neurological Disorder: No - HEENT Hx HEENT Problems: No - RENAL Hx Chronic Kidney Disease: Yes Hx Kidney Stones: Yes - ENDOCRINE/METABOLIC Hx Endocrine Disorders: No - HEMATOLOGICAL/ONCOLOGICAL Hx Blood Disorders: No Hx AIDS: No Hx Blood Transfusions: No Hx Human Immunodeficiency Virus (HIV): No - INTEGUMENTARY Hx Dermatological Problems: Yes Hx Cellulitis: Yes - MUSCULOSKELETAL/RHEUMATOLOGICAL Hx Musculoskeletal Disorders: Yes Hx Arthritis: No Hx Back Pain: Yes Hx Falls: No - GASTROINTESTINAL Hx Gastrointestinal Disorders: No Hx Constipation: No - GENITOURINARY/GYNECOLOGICAL Hx Genitourinary Disorders: No - PSYCHIATRIC Hx Anxiety: Yes Hx Depression: No Hx Substance Use: Yes - SURGICAL HISTORY Hx Surgeries: Yes Hx Herniorrhaphy: Yes Hx Orthopedic Surgery: Yes (L KNEE) Other/Comment: cornea transplant right eye - ANESTHESIA Hx Anesthesia: Yes Hx Anesthesia Reactions: No Hx Malignant Hyperthermia: No Has any member of the family had a problem w/ anesthesia?: No Meds Allergies/Adverse Reactions: Allergies Allergy/AdvReac Type Severity Reaction Status Date / Time NSAIDS (Non-Steroidal Allergy RASH Verified 05/28/17 20:28 Anti-Inflamma - Medications Medications: Current Medications Ferrous Sulfate (Feosol) 325 mg PO BID [facility] Last Admin: 05/29/17 09:00 Dose: 325 mg Oxycodone/Acetaminophen (Percocet 5/325 Mg Tab) 1 tab PO Q6 [facility] Stop: 06/01/17 10:01 Last Admin: 05/29/17 09:00 Dose: 1 tab Rivaroxaban (Xarelto) 15 mg PO DAILY [facility] PRN Reason: Protocol Physical Exam - Constitutional Appears: Well, Non-toxic, No Acute Distress - Head Exam Head Exam: ATRAUMATIC, NORMAL INSPECTION - Respiratory Exam Respiratory Exam: absent: Chest Wall Tenderness, Respiratory Distress - Cardiovascular Exam Cardiovascular Exam: REGULAR RHYTHM - GI/Abdominal Exam GI & Abdominal Exam: Soft. absent: Distended, Tenderness - Extremities Exam Extremities exam: Positive for: calf tenderness, pedal edema, tenderness Additional comments: bilateral LE edema with mild-moderate calf tenderness and erythematous changes, L>R - Neurological Exam Neurological exam: Alert, Oriented x3 - Psychiatric Exam Psychiatric exam: Normal Affect, Normal Mood - Skin Skin Exam: Intact, Warm Results - Vital Signs Recent Vital Signs: Last Vital Signs Temp 98.3 F 05/29/17 08:00 Pulse 82 05/29/17 08:00 Resp 20 05/29/17 08:00 BP 147/90 05/29/17 08:00 Pulse Ox 98 05/29/17 08:00 - Labs Result Diagrams: 05/28/17 22:54 05/28/17 22:54 Labs: Laboratory Results - last 24 hr 05/28/17 05/28/17 05/28/17 22:54 22:54 22:54 WBC 5.4 RBC 4.13 L Hgb 11.6 L Hct 34.5 L MCV 83.5 MCH 28.1 MCHC 33.6 RDW 16.9 H Plt Count 191 MPV 7.5 Neut % (Auto) 66.8 Lymph % (Auto) 20.2 [place] % (Auto) 8.9 Eos % (Auto) 3.4 Baso % (Auto) 0.7 Neut # (Auto) 3.6 Lymph # (Auto) 1.1 [place] # (Auto) 0.5 Eos # (Auto) 0.2 Baso # (Auto) 0.0 PT INR APTT Sodium 138 Potassium 4.2 Chloride 102 Carbon Dioxide 24 Anion Gap 16 BUN 8 L Creatinine 0.7 L Est GFR ( Amer) > 60 Est GFR (Non-Af Amer) > 60 Random Glucose 101 Lactic Acid 1.2 Calcium 8.7 Total Bilirubin 0.3 AST 22 ALT 35 Alkaline Phosphatase 88 Total Protein 7.3 Albumin 3.7 Globulin 3.6 Albumin/Globulin Ratio 1.0 05/28/17 22:54 WBC RBC Hgb Hct MCV MCH MCHC RDW Plt Count MPV Neut % (Auto) Lymph % (Auto) [place] % (Auto) Eos % (Auto) Baso % (Auto) Neut # (Auto) Lymph # (Auto) [place] # (Auto) Eos # (Auto) Baso # (Auto) PT 15.5 H INR 1.4 H APTT 35.0 Sodium Potassium Chloride Carbon Dioxide Anion Gap BUN Creatinine Est GFR ( Amer) Est GFR (Non-Af Amer) Random Glucose Lactic Acid Calcium Total Bilirubin AST ALT Alkaline Phosphatase Total Protein Albumin Globulin Albumin/Globulin Ratio Assessment & Plan - Assessment and Plan (Free Text) Assessment: 56 y/o male with bilateral LE DVT Plan: -cont anticoagulation with Xarelto -recommending IVC filter, however pt currently refusing -attending to discuss risks and benefits with pt later this evening -continue medical management -discussed with Dr. Minaya
--- NOTE | 2017-05-29 10:47 | PQF GENQUE ---
This form is a permanent part of the medical record 05/29/17 Dr. Grijalva, 3 queries : 1. Please specify intended meaning of 'DVT': Deep vein thrombosis Deep vein thrombophlebitis Both deep vein thrombosis and thrombophlebitis Other (please specify) Unknown 2. Please specify the specific vessel (vein) involved, including laterality 3. Please specify the acuity: Acute Chronic History of/healed with no prophylaxis History of/healed with prophylaxis Other (please specify) Clinically unable to determine Unknown Patient with a recent admission for DVT and treated with Coumadin. Presents now with bilateral lower extremity pain, swelling , erythema, warmth and induration from knees to toes as per ER MD note. US: Occlusive and Nonocclusive deep vein thrombosis. Treated with Lovenox. Clarification of your documentation is requested to better reflect the severity of illness and intensity of treatment of your patient. Indicators present PHYSICIAN'S RESPONSE Based on your medical judgment of the clinical indicators outlined above please clarify the following: [] Practitioner response [] If unable to determine, please check the box, sign and date. Present On Admission (POA) Indicator: [] Present at the time of admission [] Not present at the time of admission [] Clinically Undetermined In responding to this query, please exercise your independent professional judgment. The fact that a question is asked does not imply that any particular answer is desired or expected. Thank you for your clarification on this documentation. If you have any questions please call:ext [phone] * Thank you, Jessi Castillo RN [facility]
[2017-05-29] MEDS ORDERED: HYDROmorphone 1 mg/ml ISec IVP PRN (12:15)
--- NOTE | 2017-05-29 12:20 | CP.PCM.CON ---
History of Present Illness - History of Present Illness History of Present Illness: 56 y/o male with PMHx of B/L DVT, PE, and HTN seen at bedside this morning for painconsultation s/p bilateral lower extremity DVT. Pt was recently hospitalized two weeks ago with same problem and evaluated by surgical team. He was scheduled for IVC filter placement but refused on day of procedure. He has pain which is intermittent sharp pain in LE. His pain was well controlled last week with oxycodone. Movement makes his pain worse and rest makes the pain better. Past Patient History - Past Medical History & Family History Past Medical History?: Yes - Past Social History Smoking Status: Former Smoker - CARDIAC Hx Cardiac Disorders: Yes Hx Hypertension: Yes Hx Peripheral Edema: Yes - PULMONARY Hx Respiratory Disorders: Yes Hx Pulmonary Embolism: Yes - NEUROLOGICAL Hx Neurological Disorder: No - HEENT Hx HEENT Problems: No - RENAL Hx Chronic Kidney Disease: Yes Hx Kidney Stones: Yes - ENDOCRINE/METABOLIC Hx Endocrine Disorders: No - HEMATOLOGICAL/ONCOLOGICAL Hx Blood Disorders: No Hx AIDS: No Hx Blood Transfusions: No Hx Human Immunodeficiency Virus (HIV): No - INTEGUMENTARY Hx Dermatological Problems: Yes Hx Cellulitis: Yes - MUSCULOSKELETAL/RHEUMATOLOGICAL Hx Musculoskeletal Disorders: Yes Hx Arthritis: No Hx Back Pain: Yes Hx Falls: No - GASTROINTESTINAL Hx Gastrointestinal Disorders: No Hx Constipation: No - GENITOURINARY/GYNECOLOGICAL Hx Genitourinary Disorders: No - PSYCHIATRIC Hx Anxiety: Yes Hx Depression: No Hx Substance Use: Yes - SURGICAL HISTORY Hx Surgeries: Yes Hx Herniorrhaphy: Yes Hx Orthopedic Surgery: Yes (L KNEE) Other/Comment: cornea transplant right eye - ANESTHESIA Hx Anesthesia: Yes Hx Anesthesia Reactions: No Hx Malignant Hyperthermia: No Has any member of the family had a problem w/ anesthesia?: No Meds Allergies/Adverse Reactions: Allergies Allergy/AdvReac Type Severity Reaction Status Date / Time NSAIDS (Non-Steroidal Allergy RASH Verified 05/28/17 20:28 Anti-Inflamma - Medications Medications: Current Medications Ferrous Sulfate (Feosol) 325 mg PO BID [facility] Last Admin: 05/29/17 09:00 Dose: 325 mg Gabapentin (Neurontin) 300 mg PO BID [facility] Hydromorphone HCl (Dilaudid) 1 mg IVP Q4 PRN PRN Reason: Pain, severe (8-10) Oxycodone/Acetaminophen (Percocet 5/325 Mg Tab) 1 tab PO Q6 [facility] Stop: 06/01/17 10:01 Last Admin: 05/29/17 09:00 Dose: 1 tab Oxycodone/Acetaminophen (Percocet 5/325 Mg Tab) 2 tab PO Q4 PRN PRN Reason: Pain, moderate (4-7) Stop: 06/01/17 12:16 Rivaroxaban (Xarelto) 15 mg PO BIDWM [facility] PRN Reason: Protocol Physical Exam - Constitutional Appears: No Acute Distress - Extremities Exam Extremities exam: Positive for: calf tenderness, pedal edema, tenderness Additional comments: both LE swollen, with mild to moderate TTP. Limited ROM DP flex 5/5 bilateral LE, sensation grossly intact Results - Vital Signs Recent Vital Signs: Last Vital Signs Temp 98.3 F 05/29/17 08:00 Pulse 82 05/29/17 08:00 Resp 20 05/29/17 08:00 BP 147/90 05/29/17 08:00 Pulse Ox 98 05/29/17 08:00 - Labs Result Diagrams: 05/28/17 22:54 05/28/17 22:54 Labs: Laboratory Results - last 24 hr 05/28/17 05/28/17 05/28/17 22:54 22:54 22:54 WBC 5.4 RBC 4.13 L Hgb 11.6 L Hct 34.5 L MCV 83.5 MCH 28.1 MCHC 33.6 RDW 16.9 H Plt Count 191 MPV 7.5 Neut % (Auto) 66.8 Lymph % (Auto) 20.2 [place] % (Auto) 8.9 Eos % (Auto) 3.4 Baso % (Auto) 0.7 Neut # (Auto) 3.6 Lymph # (Auto) 1.1 [place] # (Auto) 0.5 Eos # (Auto) 0.2 Baso # (Auto) 0.0 PT INR APTT Sodium 138 Potassium 4.2 Chloride 102 Carbon Dioxide 24 Anion Gap 16 BUN 8 L Creatinine 0.7 L Est GFR ( Amer) > 60 Est GFR (Non-Af Amer) > 60 Random Glucose 101 Lactic Acid 1.2 Calcium 8.7 Total Bilirubin 0.3 AST 22 ALT 35 Alkaline Phosphatase 88 Total Protein 7.3 Albumin 3.7 Globulin 3.6 Albumin/Globulin Ratio 1.0 05/28/17 22:54 WBC RBC Hgb Hct MCV MCH MCHC RDW Plt Count MPV Neut % (Auto) Lymph % (Auto) [place] % (Auto) Eos % (Auto) Baso % (Auto) Neut # (Auto) Lymph # (Auto) [place] # (Auto) Eos # (Auto) Baso # (Auto) PT 15.5 H INR 1.4 H APTT 35.0 Sodium Potassium Chloride Carbon Dioxide Anion Gap BUN Creatinine Est GFR ( Amer) Est GFR (Non-Af Amer) Random Glucose Lactic Acid Calcium Total Bilirubin AST ALT Alkaline Phosphatase Total Protein Albumin Globulin Albumin/Globulin Ratio Assessment & Plan - Assessment and Plan (Free Text) Assessment: 56yM with DVT c/o LE pain Plan: 1. PT 2. f/u with vascular surgery 3. Care as per primary team 4. Titrate medications so Pain scale is VAS 5/10 or less.
--- NOTE | 2017-05-29 13:16 | CP.PCM.CON ---
History of Present Illness - History of Present Illness History of Present Illness: 56 year old male with a history of recurrent DVT and PE, admitted earlier this month with B/L LE DVT and placed on Xarelto, readmitted for >E swelling and erythemia. 2013 - unprovoked left LE + PE, placed on coumadin x 1.5 years 2017 - recurrent LLE DVT, placed on coumadin and was stopped 3-4 months ago. 2018 - B/L LE DVT placed on Xarelto Denies immobility or LE trauma. Reports to staying active. Worsening LE swelling and erythemia since recent discharge. Admits to being on feet a lot since discharge. Past medical history: DVT/PE, HTN Past surgical history: Five knee surgery, hernia repair, right cornea transplant Family history: Denies abnormal bleeding/clotting in the family Social history: Smokes 4-5 cigarettes daily, social alcohol, denies illicit drug use. Allergies: NSAIDs Review of systems: All remaining review of systems including HEENT, cardiovascular, respiratory, gastrointestinal, genitourinary, musculoskeletal, dermatologic, neurologic, and psychiatric are negative unless mentioned in the HPI. Past Patient History - Past Medical History & Family History Past Medical History?: Yes - Past Social History Smoking Status: Former Smoker - CARDIAC Hx Cardiac Disorders: Yes Hx Hypertension: Yes Hx Peripheral Edema: Yes - PULMONARY Hx Respiratory Disorders: Yes Hx Pulmonary Embolism: Yes - NEUROLOGICAL Hx Neurological Disorder: No - HEENT Hx HEENT Problems: No - RENAL Hx Chronic Kidney Disease: Yes Hx Kidney Stones: Yes - ENDOCRINE/METABOLIC Hx Endocrine Disorders: No - HEMATOLOGICAL/ONCOLOGICAL Hx Blood Disorders: No Hx AIDS: No Hx Blood Transfusions: No Hx Human Immunodeficiency Virus (HIV): No - INTEGUMENTARY Hx Dermatological Problems: Yes Hx Cellulitis: Yes - MUSCULOSKELETAL/RHEUMATOLOGICAL Hx Musculoskeletal Disorders: Yes Hx Arthritis: No Hx Back Pain: Yes Hx Falls: No - GASTROINTESTINAL Hx Gastrointestinal Disorders: No Hx Constipation: No - GENITOURINARY/GYNECOLOGICAL Hx Genitourinary Disorders: No - PSYCHIATRIC Hx Anxiety: Yes Hx Depression: No Hx Substance Use: Yes - SURGICAL HISTORY Hx Surgeries: Yes Hx Herniorrhaphy: Yes Hx Orthopedic Surgery: Yes (L KNEE) Other/Comment: cornea transplant right eye - ANESTHESIA Hx Anesthesia: Yes Hx Anesthesia Reactions: No Hx Malignant Hyperthermia: No Has any member of the family had a problem w/ anesthesia?: No Meds Allergies/Adverse Reactions: Allergies Allergy/AdvReac Type Severity Reaction Status Date / Time NSAIDS (Non-Steroidal Allergy RASH Verified 05/28/17 20:28 Anti-Inflamma - Medications Medications: Current Medications Ferrous Sulfate (Feosol) 325 mg PO BID [facility] Last Admin: 05/29/17 09:00 Dose: 325 mg Gabapentin (Neurontin) 300 mg PO BID [facility] Hydromorphone HCl (Dilaudid) 1 mg IVP Q4 PRN PRN Reason: Pain, severe (8-10) Last Admin: 05/29/17 12:55 Dose: 1 mg Oxycodone/Acetaminophen (Percocet 5/325 Mg Tab) 1 tab PO Q6 [facility] Stop: 06/01/17 10:01 Last Admin: 05/29/17 09:00 Dose: 1 tab Oxycodone/Acetaminophen (Percocet 5/325 Mg Tab) 2 tab PO Q4 PRN PRN Reason: Pain, moderate (4-7) Stop: 06/01/17 12:16 Rivaroxaban (Xarelto) 15 mg PO BIDWM [facility] PRN Reason: Protocol Physical Exam - Head Exam Head Exam: ATRAUMATIC - Eye Exam Eye Exam: Normal appearance - ENT Exam ENT Exam: Mucous Membranes Dry - Respiratory Exam Respiratory Exam: NORMAL BREATHING PATTERN - Cardiovascular Exam Cardiovascular Exam: +S1, +S2 - GI/Abdominal Exam GI & Abdominal Exam: Normal Bowel Sounds - Extremities Exam Extremities exam: Positive for: pedal edema - Neurological Exam Neurological exam: Oriented x3 - Psychiatric Exam Psychiatric exam: Normal Affect, Normal Mood - Skin Skin Exam: Warm Results - Vital Signs Recent Vital Signs: Last Vital Signs Temp 98.3 F 05/29/17 08:00 Pulse 82 05/29/17 08:00 Resp 20 05/29/17 08:00 BP 147/90 05/29/17 08:00 Pulse Ox 98 05/29/17 08:00 - Labs Result Diagrams: 05/28/17 22:54 05/28/17 22:54 Labs: Laboratory Results - last 24 hr 05/28/17 05/28/17 05/28/17 22:54 22:54 22:54 WBC 5.4 RBC 4.13 L Hgb 11.6 L Hct 34.5 L MCV 83.5 MCH 28.1 MCHC 33.6 RDW 16.9 H Plt Count 191 MPV 7.5 Neut % (Auto) 66.8 Lymph % (Auto) 20.2 [place] % (Auto) 8.9 Eos % (Auto) 3.4 Baso % (Auto) 0.7 Neut # (Auto) 3.6 Lymph # (Auto) 1.1 [place] # (Auto) 0.5 Eos # (Auto) 0.2 Baso # (Auto) 0.0 PT INR APTT Sodium 138 Potassium 4.2 Chloride 102 Carbon Dioxide 24 Anion Gap 16 BUN 8 L Creatinine 0.7 L Est GFR ( Amer) > 60 Est GFR (Non-Af Amer) > 60 Random Glucose 101 Lactic Acid 1.2 Calcium 8.7 Total Bilirubin 0.3 AST 22 ALT 35 Alkaline Phosphatase 88 Total Protein 7.3 Albumin 3.7 Globulin 3.6 Albumin/Globulin Ratio 1.0 05/28/17 22:54 WBC RBC Hgb Hct MCV MCH MCHC RDW Plt Count MPV Neut % (Auto) Lymph % (Auto) [place] % (Auto) Eos % (Auto) Baso % (Auto) Neut # (Auto) Lymph # (Auto) [place] # (Auto) Eos # (Auto) Baso # (Auto) PT 15.5 H INR 1.4 H APTT 35.0 Sodium Potassium Chloride Carbon Dioxide Anion Gap BUN Creatinine Est GFR ( Amer) Est GFR (Non-Af Amer) Random Glucose Lactic Acid Calcium Total Bilirubin AST ALT Alkaline Phosphatase Total Protein Albumin Globulin Albumin/Globulin Ratio Assessment & Plan (1) DVT, bilateral lower limbs Assessment and Plan: recommend continuing with Xarelto - 15mg BID x 21 days followed by 20mg daily. given recurrent venous clotting, will need lifelong anticoagulation deferred IVC filter in the past Status: Acute (2) Anemia Assessment and Plan: iron and b12 deficiency on PO iron, will give a dose of IM B12 Thank you for this interesting consult. Status: Acute
[2017-05-29 17:12] LABS: URINE BILIRUBIN NEGATIVE (NEGATIVE); URINE BLOOD NEGATIVE (NEGATIVE); URINE CLARITY CLEAR (Clear); URINE COLOR YELLOW (YELLOW); URINE GLUCOSE (UA) NEG (Normal); URINE LEUKOCYTE ESTERASE NEG Leu/uL (Negative); URINE NITRATE NEGATIVE (NEGATIVE); URINE PROTEIN NEGATIVE (NEGATIVE); URINE UROBILINOGEN 0.2-1.0 mg/dL (0.2-1.0)
[2017-05-29 18:09] LABS: BENZODIAZEPINES, UR NEGATIVE (NEGATIVE); OPIATES, UR POSITIVE (NEGATIVE); PHENCYCLIDINE, UR NEGATIVE (NEGATIVE)
[2017-05-29 18:41] LABS: BARBITURATES, UR NEGATIVE (NEGATIVE)
[2017-05-29] MEDS: Oxycodone/Acetaminophen 5/325 mg Tab PO PRN ×2 (18:53→23:07)
[2017-05-30] MEDS: Oxycodone/Acetaminophen 5/325 mg Tab PO PRN ×3 (03:40→13:44)
[2017-05-30 08:24] VITALS: RESP 20
--- NOTE | 2017-05-30 15:04 | CP.PCM.PCO ---
Assessment/Plan - Assessment and Plan (Free Text) Assessment: Patient for dc as per dr grijalva's orders [place] RX verified with last rx for pain meds given while patient was in house 05/22 by primary care team. Pt seen by pain management, recommendations for percocet for dc with follow up with PMD dr harrison. Follow up on saturday, rx [address] Grijalva made aware. Patient has xarelto at home. no further rx needed.
[2017-05-30 15:48] VITALS: BP 152/87; PULSE 77; TEMP 98; O2SAT 96
== END 2017-05-30 17:15 | disposition home or self-care (01) | DRG 130 ==
LOC: H.ER 19:37 → H.ERHOLD 23:55 → H.TEL 05-29 02:13
PROVIDERS: ADMIT Internal Medicine; ATTEND Internal Medicine
DX: I82.413 Acute embolism and thrombosis of femoral vein, bilateral (principal); I82.433 Acute embolism and thrombosis of popliteal vein, bilateral; D51.8 Other vitamin B12 deficiency anemias; D50.8 Other iron deficiency anemias; N18.9 Chronic kidney disease, unspecified; I12.9 Hypertensive chronic kidney disease with stage 1 through stage 4 chronic kidney disease, or unspecified chronic kidney disease; F17.210 Nicotine dependence, cigarettes, uncomplicated; Z79.01 Long term (current) use of anticoagulants; Z86.711 Personal history of pulmonary embolism; Z86.718 Personal history of other venous thrombosis and embolism; Z87.442 Personal history of urinary calculi; Z94.7 Corneal transplant status

== ENCOUNTER 2017-06-01 07:41 | Emergency (ER) | payer OTHER ==
[2017-06-01 07:51] VITALS: BMI 32.5
[2017-06-01] MEDS ORDERED: Morphine 4 MG/ML VIAL IVP ONE ×2 (08:41→12:32)
[2017-06-01] MEDS ORDERED: Morphine 4 MG/ML VIAL ONE ×2 (09:09→12:47)
--- NOTE | 2017-06-01 09:57 | ED PDOC ---
Lower Extremity Pain/Injury Time Seen by Provider: 06/01/17 07:56 Chief Complaint (Nursing): Shortness Of Breath Chief Complaint (Provider): Bilateral Lower Leg Swelling History Per: Patient History/Exam Limitations: no limitations Onset/Duration Of Symptoms: Days (x1 week) Current Symptoms Are (Timing): Still Present Severity: None Pain Scale Rating Of: 2 Additional Complaint(s): 56 year old male with a past medical history of deep vein thrombosis and pulmonary embolism presents to the ED complaining of bilateral lower leg swelling x1 week. Patient states he was recently admitted last week for the same symptoms and discharged. He reports that he was diagnosed with deep vein thrombosis in his bilateral legs 2 weeks ago and was admitted at that time. Patient reports that he has been admitted three times for the same diagnosis. Patient states that he is currently taking xarelto for his DVT and is compliant with his medication but for the past 2 days he has noticed increased swelling and redness of the left leg. He reports that he took percocet for the pain but it has offered no relief as the pain still persists. Patient also notes some shortness of breath but states that this is a chronic symptom. Denies fever, chest pain. PMD: Dr. Ana Long physician - Risk Factors DVT Risk Factors: Pos: History Of DVT Past Medical History Reviewed: Historical Data, Nursing Documentation, Vital Signs Vital Signs: Last Vital Signs Temp 97.5 F L 06/01/17 07:50 Pulse 92 H 06/01/17 07:50 Resp 16 06/01/17 07:50 BP 163/96 H 06/01/17 07:50 Pulse Ox 99 06/01/17 07:50 - Medical History PMH: Anxiety, HTN, Kidney Stones, Peripheral Edema, Pulmonary Embolism, Chronic Kidney Disease Denies: Arthritis, Depression, HIV - Surgical History Surgical History: Hernia Repair Other surgeries: Left knee surgery - Family History Family History: States: Unknown Family Hx - Social History Current smoker - smoking cessation education provided: No (Former) Ex-Smoker (has not smoked in the last 12 months): No Alcohol: None Drugs: Denies - Immunization History Hx Tetanus Toxoid Vaccination: No Hx Influenza Vaccination: No Hx Pneumococcal Vaccination: No - Home Medications Home Medications: Ambulatory Orders Medication Instructions Recorded Amlodipine Besylate [Norvasc] 10 mg PO DAILY #10 tab 02/03/15 Cephalexin [Keflex] 500 mg PO Q6 #24 cap 05/22/17 Ferrous Sulfate [Feosol] 325 mg PO BID #60 tab 05/22/17 Lactobacillus Acidophilus [Bacid 1 cap PO BID #10 cap 05/22/17 Acidophilus] Rivaroxaban [Xarelto] 15 mg PO BIDWM #42 tab 05/22/17 oxyCODONE/Acetaminophen [Percocet 1 ea PO Q6 3 Days #12 tab 05/30/17 5/325 mg Tab] traMADol [Ultram] 50 mg PO TID PRN #15 tab 06/01/17 - Allergies Allergies/Adverse Reactions: Allergies Allergy/AdvReac Type Severity Reaction Status Date / Time NSAIDS (Non-Steroidal Allergy RASH Verified 05/28/17 20:28 Anti-Inflamma Review of Systems ROS Statement: Except As Marked, All Systems Reviewed And Found Negative Constitutional: Negative for: Fever Cardiovascular: Negative for: Chest Pain Respiratory: Positive for: Shortness of Breath (chronic). Negative for: Cough Musculoskeletal: Positive for: Leg Pain (bilateral leg pain and swelling) Physical Exam - Reviewed Nursing Documentation Reviewed: Yes Vital Signs Reviewed: Yes - Physical Exam Appears: Positive for: Non-toxic, No Acute Distress Head Exam: Positive for: ATRAUMATIC, NORMAL INSPECTION, NORMOCEPHALIC Skin: Positive for: Normal Color, Warm. Negative for: Rash Eye Exam: Positive for: Normal appearance, EOMI, PERRL ENT: Positive for: Normal ENT Inspection. Negative for: Nasal Congestion, Tonsillar Exudate Neck: Positive for: Normal, Painless ROM, Supple Cardiovascular/Chest: Positive for: Regular Rate, Rhythm, Chest Non Tender. Negative for: Tachycardia Respiratory: Positive for: Normal Breath Sounds. Negative for: Rales, Rhonchi, Wheezing, Respiratory Distress Gastrointestinal/Abdominal: Positive for: Normal Exam, Bowel Sounds, Soft. Negative for: Tenderness, Guarding Back: Positive for: Normal Inspection. Negative for: L CVA Tenderness, R CVA Tenderness Extremity: Positive for: Normal ROM (full orm of bilateral legs), Tenderness ( mild tenderness on palpation of left leg.), Swelling (: b/l leg swelling left greater than right;below knee swelling.), Other (diffuse erythema of both legs more on left than right;stasis dermatitis of both legs no wounds or ulcers no ecchymosis.). Negative for: Calf Tenderness, Deformity Neurologic/Psych: Positive for: Alert, Oriented, Gait - Laboratory Results Result Diagrams: 06/01/17 09:15 06/01/17 09:15 - ECG O2 Sat by Pulse Oximetry: 99 (RA) Pulse Ox Interpretation: Normal Medical Decision Making Medical Decision Makin Initial Impression 56 y/o male presenting with bilateral leg swelling Differential: DVT of bilateral legs in setting of known diagnosis as well as cellulitis of both legs Initial Plan: * EKG * BMP * Troponin * CBC * PTT * Prothrombin time * Morphine 4mg IVP * Blood Culture * US Duplex Lower Extremities * Reevaluation 1206 PROCEDURE: Bilateral lower extremity venous duplex Doppler. HISTORY: Bilateral leg swelling. Known DVT COMPARISON: Comparison made with prior bilateral venous Doppler 05/28/2017. TECHNIQUE: Bilateral common femoral, superficial femoral, popliteal and posterior tibial veins were evaluated. Flow was assessed with color Doppler, compressibility and assessment of phasic flow . FINDINGS: Right lower extremity: . The common femoral and proximal superficial femoral veins exhibit frontal and compressibility. Mid and distal superficial femoral vein as well as popliteal vein demonstrated the incompletely compressible thrombus. Posterior tibial vein patent. Left lower extremity: The common femoral as well as superficial femoral patent. The left popliteal vein contains nonocclusive thrombus with some demonstration of flow flow though not fully compressible. Left posterior tibial vein not visualized. . COMMON FEMORAL VEIN: Right CFV: Unremarkable. Left CFV: Unremarkable. SUPERFICIAL FEMORAL VEIN: Right SFV: Unremarkable. Left SFV: Unremarkable. POPLITEAL VEIN: Right Popliteal: Unremarkable. Left Popliteal: Unremarkable. POSTERIOR TIBIAL VEIN: Right PTV: Unremarkable. Left PTV: Unremarkable. OTHER FINDINGS: None. IMPRESSION: Re- demonstrated are occlusive and nonocclusive DVT as detailed above. Documented by Roxana Quinteros acting as a scribe for Clif Hein MD. All medical record entries made by the Scribe were at my direction and personally dictated by me. I have reviewed the chart and agree that the record accurately reflects my personal performance of the history, physical exam, medical decision making, and the department course for this patient. I have also personally directed, reviewed, and agree with the discharge instructions and disposition. Disposition - Clinical Impression Clinical Impression: Stasis dermatitis of both legs, DVT (deep venous thrombosis), Bilateral cellulitis of lower leg - Patient ED Disposition Is Patient to be Admitted: No Doctor Will See Patient In The: Office Counseled Patient/Family Regarding: Studies Performed, Diagnosis, Need For Followup - Disposition Referrals: [facility] [Outside] Disposition: Routine/Home Disposition Time: 12:38 Condition: GOOD Additional Instructions: Take your medications as instructed. Follow up with your PCP in 2-3 days. Prescriptions: traMADol [Ultram] 50 mg PO TID PRN #15 tab PRN Reason: Pain, Severe (8-10) Instructions: Deep Vein Thrombosis (Blood Clots in the Legs), Cellulitis (Skin Infection), Adult (DC)
[2017-06-01 10:00] LABS: BASO % 0.3 % (0.0-2.0); EOS # 0.1 K/uL (0.0-0.7); EOS % 1.2 % (0.0-4.0); HEMOGLOBIN 12.6 g/dL (12.0-18.0); LYMPH # 0.8 K/uL (1.0-4.3); LYMPH % 10.8 % (20.0-40.0); MEAN CORPUSCULAR HEMOGLOBIN 28.4 pg (27.0-31.0); MEAN CORPUSCULAR HGB CONC 33.8 g/dL (33.0-37.0); MEAN PLATELET VOLUME 7.8 fl (7.2-11.7); MONO # 0.5 K/uL (0.0-0.8); MONO % 7.6 % (0.0-10.0); NEUT # 5.8 K/uL (1.8-7.0); NEUT % 80.1 % (50.0-75.0); NRBC % 0.3 % (0.0-0.0); RBC 4.43 Mil/uL (4.40-5.90); WHITE BLOOD COUNT 7.3 K/uL (4.8-10.8)
[2017-06-01 10:22] LABS: BLOOD UREA NITROGEN 17 mg/dl (9-20); CALCIUM 9.3 mg/dL (8.4-10.2); GFR AFRICAN-AMERICAN > 60; GFR NON-AFRICAN AMERICAN > 60
[2017-06-01 10:35] LABS: INR 1.3 (0.9-1.2); PARTIAL THROMBOPLASTIN TIME 33.9 Seconds (25.6-37.1); PROTHROMBIN TIME 14.1 Seconds (9.8-13.1)
--- NOTE | 2017-06-01 12:08 | US ---
PROCEDURE: Bilateral lower extremity venous duplex Doppler. HISTORY: Bilateral leg swelling. Known DVT COMPARISON: Comparison made with prior bilateral venous Doppler 05/28/2017. TECHNIQUE: Bilateral common femoral, superficial femoral, popliteal and posterior tibial veins were evaluated. Flow was assessed with color Doppler, compressibility and assessment of phasic flow . FINDINGS: Right lower extremity: . The common femoral and proximal superficial femoral veins exhibit frontal and compressibility. Mid and distal superficial femoral vein as well as popliteal vein demonstrated the incompletely compressible thrombus. Posterior tibial vein patent. Left lower extremity: The common femoral as well as superficial femoral patent. The left popliteal vein contains nonocclusive thrombus with some demonstration of flow flow though not fully compressible. Left posterior tibial vein not visualized. . COMMON FEMORAL VEIN: Right CFV: Unremarkable. Left CFV: Unremarkable. SUPERFICIAL FEMORAL VEIN: Right SFV: Unremarkable. Left SFV: Unremarkable. POPLITEAL VEIN: Right Popliteal: Unremarkable. Left Popliteal: Unremarkable. POSTERIOR TIBIAL VEIN: Right PTV: Unremarkable. Left PTV: Unremarkable. OTHER FINDINGS: None. IMPRESSION: Re- demonstrated are occlusive and nonocclusive DVT as detailed above.
[2017-06-01 12:09] VITALS: RESP 18
[2017-06-01 13:16] VITALS: BP 146/90; PULSE 88; TEMP 98.2
[2017-06-01 13:17] VITALS: O2SAT 99
--- NOTE | 2017-06-03 12:20 | CARD ---
APPROVED REPORT EKG Measurement Heart [id number] <Conclusion> Normal sinus rhythm Normal ECG
== END 2017-06-01 13:17 | disposition home or self-care (01) ==
LOC: H.ER 07:41
DX: L03.115 Cellulitis of right lower limb (principal); L03.116 Cellulitis of left lower limb; I82.409 Acute embolism and thrombosis of unspecified deep veins of unspecified lower extremity; Z86.711 Personal history of pulmonary embolism; Z86.718 Personal history of other venous thrombosis and embolism; Z87.442 Personal history of urinary calculi; I12.9 Hypertensive chronic kidney disease with stage 1 through stage 4 chronic kidney disease, or unspecified chronic kidney disease; F41.9 Anxiety disorder, unspecified; I87.2 Venous insufficiency (chronic) (peripheral)
CPT/HCPCS: 80048; 84484; 85025; 85610; 85730; 87040; 93005; 93970; 96374; 96376; 99283; J2270

== ENCOUNTER 2017-06-10 20:31 | Emergency (ER) | payer OTHER ==
[2017-06-10 20:31] VITALS: BMI 32.5
[2017-06-10 20:45] VITALS: RESP 18; TEMP 98.4; O2SAT 98
[2017-06-10] MEDS ORDERED: Morphine 4 MG/ML VIAL IVP ONE (22:01)
[2017-06-10] MEDS ORDERED: Morphine 4 MG/ML VIAL ONE (22:15)
[2017-06-10 22:37] LABS: BASO # 0.1 K/uL (0.0-0.2); BASO % 0.7 % (0.0-2.0); EOS # 0.1 K/uL (0.0-0.7); EOS % 1.9 % (0.0-4.0); HEMOGLOBIN 11.8 g/dL (12.0-18.0); LYMPH # 1.1 K/uL (1.0-4.3); LYMPH % 15.1 % (20.0-40.0); MEAN CELL VOLUME 84.4 fl (80.0-94.0); MEAN CORPUSCULAR HEMOGLOBIN 28.4 pg (27.0-31.0); MEAN CORPUSCULAR HGB CONC 33.7 g/dL (33.0-37.0); MEAN PLATELET VOLUME 7.3 fl (7.2-11.7); MONO # 0.6 K/uL (0.0-0.8); MONO % 8.5 % (0.0-10.0); NEUT # 5.5 K/uL (1.8-7.0); NEUT % 73.8 % (50.0-75.0); NRBC % 0.2 % (0.0-0.0); RBC 4.15 Mil/uL (4.40-5.90); RED CELL DISTRIBUTION WIDTH 17.1 % (11.5-14.5); WHITE BLOOD COUNT 7.4 K/uL (4.8-10.8)
--- NOTE | 2017-06-10 22:43 | ED PDOC ---
HPI: Chest Pain Time Seen by Provider: 06/10/17 20:54 Chief Complaint (Nursing): Chest Pain Chief Complaint (Provider): Chest Pain History Per: Patient History/Exam Limitations: no limitations Onset/Duration Of Symptoms: Days Current Symptoms Are (Timing): Still Present Associated Symptoms: Other (Chest pain and SOB) Additional Complaint(s): Aldair Kirk is a 56 year old male, with a past medical history of chronic DVT, PE and IVC filter, who presents to the emergency department complaining of bilateral leg pain and swelling associated with chest pain and shortness of breath. Patient has been admitted in the past diagnosed with DVT with multiple doppler ultrasound done and is currently taking xarelto. Patient states he is also taking Keflex which he finished. He has an appointment with clinic on Saturday. He took tylenol with no improvement. Patient also reports a mild cough and a lump on his penis which he has had for several days. He denies any fever, chills or medical complaints. PMD: None provided. - Risk Factors PE Risk Factors: Pos: Previous DVT, Previous PE Past Medical History Reviewed: Historical Data, Nursing Documentation, Vital Signs Vital Signs: Last Vital Signs Temp 98.4 F 06/10/17 20:40 Pulse 91 H 06/11/17 05:35 Resp 18 06/11/17 05:35 BP 134/96 H 06/11/17 05:35 Pulse Ox 98 06/11/17 05:35 - Medical History PMH: Anxiety, Deep Vein Thrombosis (Chronic), HTN, Kidney Stones, Peripheral Edema, Pulmonary Embolism, Chronic Kidney Disease Denies: Arthritis, Depression, HIV - Surgical History Surgical History: Hernia Repair - Family History Family History: States: Unknown Family Hx - Social History Current smoker - smoking cessation education provided: Yes (Recently stopped) - Immunization History Hx Tetanus Toxoid Vaccination: No Hx Influenza Vaccination: No Hx Pneumococcal Vaccination: No - Home Medications Home Medications: Ambulatory Orders Medication Instructions Recorded Amlodipine Besylate [Norvasc] 10 mg PO DAILY #10 tab 02/03/15 Cephalexin [Keflex] 500 mg PO Q6 #24 cap 05/22/17 Ferrous Sulfate [Feosol] 325 mg PO BID #60 tab 05/22/17 Lactobacillus Acidophilus [Bacid 1 cap PO BID #10 cap 05/22/17 Acidophilus] Rivaroxaban [Xarelto] 15 mg PO BIDWM #42 tab 05/22/17 oxyCODONE/Acetaminophen [Percocet 1 ea PO Q6 3 Days #12 tab 05/30/17 5/325 mg Tab] traMADol [Ultram] 50 mg PO TID PRN #15 tab 06/01/17 Clindamycin [Cleocin] 300 mg PO TID #21 cap 06/11/17 - Allergies Allergies/Adverse Reactions: Allergies Allergy/AdvReac Type Severity Reaction Status Date / Time NSAIDS (Non-Steroidal Allergy RASH Verified 05/28/17 20:28 Anti-Inflamma SHAE Risk Score for UA/NSTEMI - SHAE Risk Score Age > 64: NO 3 or more CAD Risk Factors: NO Known CAD (Stenosis greater than 50%): NO Aspirin use in past 7 days: NO Severe Angina: NO EKG ST changes greater than 0.5mm: NO Positive Cardiac Marker: NO SHAE Score: 0 Risk %: 5% Wells Criteria for PE - Wells Criteria for Pulmonary Embolism Clinical Signs and Symptoms of DVT: Yes (Patient has DVT and on Xarelto. will rule out PE.) P.E is #1 Diagnosis, or Equally Likely: No Heart Rate >100: No Immobilization at least 3 days;Surgery previous 4 weeks: No Previous, objectively diagnosed PE or DVT: No Hemoptysis: No Malignancy w/treatment within 6 months, or palliative: No Total Score: 3 Review of Systems ROS Statement: Except As Marked, All Systems Reviewed And Found Negative Constitutional: Negative for: Fever, Chills Cardiovascular: Positive for: Chest Pain Respiratory: Positive for: Cough (mild), Shortness of Breath Musculoskeletal: Positive for: Leg Pain (b/l swelling) Physical Exam - Reviewed Nursing Documentation Reviewed: Yes Vital Signs Reviewed: Yes - Physical Exam Appears: Positive for: Non-toxic Head Exam: Positive for: ATRAUMATIC, NORMAL INSPECTION, NORMOCEPHALIC Skin: Positive for: Normal Color, Warm, Dry Eye Exam: Positive for: Normal appearance, EOMI, PERRL Neck: Positive for: Painless ROM, Supple Cardiovascular/Chest: Positive for: Regular Rate, Rhythm. Negative for: Murmur Respiratory: Positive for: Normal Breath Sounds. Negative for: Respiratory Distress Gastrointestinal/Abdominal: Positive for: Normal Exam, Soft. Negative for: Tenderness Extremity: Positive for: Tenderness (Diffused tenderness b/l legs), Swelling (b/ l leg swelling and erythema below the knee. No varicose veins seen.). Negative for: Normal ROM, Deformity Neurologic/Psych: Positive for: Alert, Oriented - Laboratory Results Result Diagrams: 06/10/17 22:34 06/10/17 22:34 - ECG O2 Sat by Pulse Oximetry: 98 (RA) Pulse Ox Interpretation: Normal - Progress Re-evaluation Time: 02:30 Condition: Re-examined, Improved Medical Decision Making Medical Decision Making: Initial Impression: Chest Pain, Known chronic DVT, PE. Less likely b/l lower leg cellulitis. Initial Plan: --Angio chest PE protocol [CT] --EKG --BNP --BMP --Troponin I --CBC w/ differential --PTT --PT --Chest one view [RAD] --Morphine 4mg IVP --Reevaluation 00:23 EXAM: CT Angiography Chest With Intravenous Contrast CLINICAL HISTORY: 56 years old, male; Pain; Chest pain; Type not specified TECHNIQUE: Axial computed tomographic angiography images of the chest with intravenous contrast using pulmonary embolism protocol. All CT scans at this facility use one or more dose reduction techniques, viz.: automated exposure control; ma/kV adjustment per patient size (including targeted exams where dose is matched to indication; i.e. head); or iterative reconstruction technique. MIP reconstructed images were created and reviewed. Coronal and sagittal reformatted images were created and reviewed. CONTRAST: 90 mL of [id number] administered intravenously. COMPARISON: CT - ANGIO CHEST PE PROTOCOL 2017-05-16 01:40 FINDINGS: Limitations: Suboptimal timing of bolus. Pulmonary arteries: No pulmonary embolism. Aorta: No aneurysm. No dissection. Lungs: Early emphysematous changes. Minimal atelectasis/scarring. No consolidation. Pleural space: No significant effusion. No pneumothorax. Heart: Borderline cardiomegaly. No significant pericardial effusion. Coronary artery calcifications. Bones/joints: Mild degenerative changes of spine. No acute fracture. Soft tissues: Unremarkable. Lymph nodes: No pathologically enlarged lymph nodes. Liver: Fatty infiltration. Spleen: Mild splenomegaly, AP dimension. IMPRESSION: 1. No definite pulmonary embolism. 2. Incidental/non-acute findings are described above. Scribe Attestation: Documented by Jalen Garrett, acting as a scribe for Clif Hein MD. Provider Scribe Attestation: All medical record entries made by the Scribe were at my direction and personally dictated by me. I have reviewed the chart and agree that the record accurately reflects my personal performance of the history, physical exam, medical decision making, and the department course for this patient. I have also personally directed, reviewed, and agree with the discharge instructions and disposition. Disposition - Clinical Impression Clinical Impression: Chest pain, Bilateral cellulitis of lower leg - Patient ED Disposition Is Patient to be Admitted: No Doctor Will See Patient In The: Office Counseled Patient/Family Regarding: Studies Performed, Diagnosis, Need For Followup - Disposition Referrals: [facility] [Outside] Disposition: Routine/Home Disposition Time: 02:40 Condition: GOOD Additional Instructions: Take your medications as instructed. Follow up with your PCP in 2-3 days. Prescriptions: Clindamycin [Cleocin] 300 mg PO TID #21 cap Instructions: Chest Pain, Cellulitis (Skin Infection), Adult (DC)
[2017-06-10 22:52] LABS: INR 1.4 (0.9-1.2); PARTIAL THROMBOPLASTIN TIME 33.3 Seconds (25.6-37.1); PROTHROMBIN TIME 15.1 Seconds (9.8-13.1)
[2017-06-10 22:56] LABS: B-TYPE NATRIURETIC PEPTIDE 136 pg/ml (0-900); BLOOD UREA NITROGEN 7 mg/dl (9-20); CALCIUM 8.8 mg/dL (8.4-10.2); GFR AFRICAN-AMERICAN > 60; GFR NON-AFRICAN AMERICAN > 60
[2017-06-10] MEDS ORDERED: Iodixanol 320 MG/ML 100 ML BOTTLE IV ONE (23:09)
--- NOTE | 2017-06-11 00:24 | CT ---
EXAM: CT Angiography Chest With Intravenous Contrast CLINICAL HISTORY: 56 years old, male; Pain; Chest pain; Type not specified TECHNIQUE: Axial computed tomographic angiography images of the chest with intravenous contrast using pulmonary embolism protocol. All CT scans at this facility use one or more dose reduction techniques, viz.: automated exposure control; ma/kV adjustment per patient size (including targeted exams where dose is matched to indication; i.e. head); or iterative reconstruction technique. MIP reconstructed images were created and reviewed. Coronal and sagittal reformatted images were created and reviewed. CONTRAST: 90 mL of [id number] administered intravenously. COMPARISON: CT - ANGIO CHEST PE PROTOCOL 2017-05-16 01:40 FINDINGS: Limitations: Suboptimal timing of bolus. Pulmonary arteries: No pulmonary embolism. Aorta: No aneurysm. No dissection. Lungs: Early emphysematous changes. Minimal atelectasis/scarring. No consolidation. Pleural space: No significant effusion. No pneumothorax. Heart: Borderline cardiomegaly. No significant pericardial effusion. Coronary artery calcifications. Bones/joints: Mild degenerative changes of spine. No acute fracture. Soft tissues: Unremarkable. Lymph nodes: No pathologically enlarged lymph nodes. Liver: Fatty infiltration. Spleen: Mild splenomegaly, AP dimension. IMPRESSION: 1. No definite pulmonary embolism. 2. Incidental/non-acute findings are described above.
[2017-06-11] MEDS ORDERED: Morphine 4 MG/ML VIAL ONE (02:43)
[2017-06-11] MEDS ORDERED: Morphine 4 MG/ML VIAL IVP ONE (03:00)
[2017-06-11 06:06] VITALS: BP 134/96; PULSE 91
--- NOTE | 2017-06-11 09:59 | RAD ---
PROCEDURE: CHEST RADIOGRAPH, 1 VIEW HISTORY: chest pain COMPARISON: Chest radiograph dated 05/28/2017. FINDINGS: LUNGS: Clear. PLEURA: No pneumothorax or pleural fluid seen. CARDIOVASCULAR: Cardiomediastinal silhouette stably enlarged. OSSEOUS STRUCTURES: Unchanged. VISUALIZED UPPER ABDOMEN: Normal. OTHER FINDINGS: None. IMPRESSION: No active disease.
--- NOTE | 2017-06-11 12:41 | CARD ---
APPROVED REPORT EKG Measurement Heart [id number] <Conclusion> Normal sinus rhythm Normal ECG
== END 2017-06-11 06:14 | disposition home or self-care (01) ==
LOC: H.ER 20:31
DX: R07.89 Other chest pain (principal); L03.115 Cellulitis of right lower limb; L03.116 Cellulitis of left lower limb; F41.9 Anxiety disorder, unspecified; I12.9 Hypertensive chronic kidney disease with stage 1 through stage 4 chronic kidney disease, or unspecified chronic kidney disease; Z86.711 Personal history of pulmonary embolism; Z86.718 Personal history of other venous thrombosis and embolism
CPT/HCPCS: 71045; 71275; 80048; 83880; 84484; 85025; 85610; 85730; 93005; 96374; 99283; J2270; Q9967

== ENCOUNTER 2017-09-08 20:18 | Emergency (ER) | payer OTHER ==
[2017-09-08 20:18] VITALS: BMI 32.5
[2017-09-08] MEDS ORDERED: ceFAZolin 1 GM in Sodium Chloride 0.9% 100 ML IVPB ONE (20:56)
--- NOTE | 2017-09-08 20:59 | ED PDOC ---
Lower Extremity Pain/Injury Time Seen by Provider: 09/08/17 20:57 Chief Complaint (Nursing): Lower Extremity Problem/Injury Chief Complaint (Provider): lower extremity swelling/pain History Per: Patient (56 y/o male undomiciled here with h/o DVT/PE and advised lifelong Xeralta here with complaint of lower extremity leg pain increased. No fevers/chills. Was last admitted 05/29/2017 for dvts/cellulitis and d/c home on keflex/xeralta.) Past Medical History Reviewed: Historical Data, Nursing Documentation, Vital Signs Vital Signs: Last Vital Signs Temp 98.2 F 09/08/17 20:29 Pulse 96 H 09/08/17 20:29 Resp 18 09/08/17 20:29 BP 169/104 H 09/08/17 20:29 Pulse Ox 96 09/08/17 20:29 - Medical History PMH: Anxiety, Deep Vein Thrombosis (Chronic), HTN, Kidney Stones, Peripheral Edema, Pulmonary Embolism, Chronic Kidney Disease Denies: Arthritis, Depression, HIV - Surgical History Surgical History: Hernia Repair - Family History Family History: States: Unknown Family Hx - Immunization History Hx Tetanus Toxoid Vaccination: No Hx Influenza Vaccination: No Hx Pneumococcal Vaccination: No - Home Medications Home Medications: Ambulatory Orders Medication Instructions Recorded Amlodipine Besylate [Norvasc] 10 mg PO DAILY #10 tab 02/03/15 Cephalexin [Keflex] 500 mg PO Q6 #24 cap 05/22/17 Ferrous Sulfate [Feosol] 325 mg PO BID #60 tab 05/22/17 Lactobacillus Acidophilus [Bacid 1 cap PO BID #10 cap 05/22/17 Acidophilus] Rivaroxaban [Xarelto] 15 mg PO BIDWM #42 tab 05/22/17 oxyCODONE/Acetaminophen [Percocet 1 ea PO Q6 3 Days #12 tab 05/30/17 5/325 mg Tab] traMADol [Ultram] 50 mg PO TID PRN #15 tab 06/01/17 Clindamycin [Cleocin] 300 mg PO TID #21 cap 06/11/17 Cephalexin [Keflex] 500 mg PO QID #28 capsule 09/09/17 - Allergies Allergies/Adverse Reactions: Allergies Allergy/AdvReac Type Severity Reaction Status Date / Time NSAIDS (Non-Steroidal Allergy RASH Verified 09/08/17 20:29 Anti-Inflamma Review of Systems ROS Statement: Except As Marked, All Systems Reviewed And Found Negative Physical Exam - Reviewed Nursing Documentation Reviewed: Yes Vital Signs Reviewed: Yes - Physical Exam Appears: Positive for: Well, Non-toxic, No Acute Distress Head Exam: Positive for: ATRAUMATIC, NORMAL INSPECTION, NORMOCEPHALIC Skin: Positive for: Normal Color, Warm, DRY Eye Exam: Positive for: EOMI, Normal appearance, PERRL ENT: Positive for: Normal ENT Inspection Neck: Positive for: Normal, Painless ROM Cardiovascular/Chest: Positive for: Regular Rate, Rhythm Respiratory: Positive for: CNT, Normal Breath Sounds Gastrointestinal/Abdominal: Positive for: Normal Exam, Soft Back: Positive for: Normal Inspection Extremity: Positive for: Normal ROM, Other (thickened whitish patches noted anterior legs bilaterally. (+) erythema noted bilateral pre-tibial region of lower extremities.) Neurologic/Psych: Positive for: Alert, Oriented - Laboratory Results Result Diagrams: 09/08/17 23:04 09/08/17 21:25 - ECG O2 Sat by Pulse Oximetry: 96 - Progress ED Course And Treament: Ancef 1 gm iv x 1 dose for possible cellulitis. Patient in ED stating he never saw ED provider. When reminded that he was examined by PA, patient states 'I forgot' Patient refused tylenol and tramadol for pain relief in ED. [facility] noted percocet 20 tabs 08/30/2017 Patient complains of chest pain at 23:53. EKG done at 23:54 NSR 79bpm no ectopy no acute changes Upon re-examination, patient was noted looking for remote control walking around in room. patient states he 'must have had chest pain b/c he was frustrated' Patient upset that he was not offered better pain medication for his dvts. Patient requests that iv be removed and he would like to leave. When nurse returns to room, patient denies having made this statement. duplex: IMPRESSION: Nonocclusive deep venous thrombosis again redemonstrated. Thank you for allowing us to participate in the care of your patient. Dictated and Authenticated by: Donna Cade MD Disposition - Clinical Impression Clinical Impression: Cellulitis, Chronic deep vein thrombosis (DVT), Chest pain - Patient ED Disposition Is Patient to be Admitted: No - Disposition Referrals: [facility] [Outside] Disposition: Routine/Home Disposition Time: 01:24 Condition: FAIR Prescriptions: Cephalexin [Keflex] 500 mg PO QID #28 capsule Instructions: Cellulitis and Erysipelas (Skin Infections), Deep Vein Thrombosis (Blood Clots in the Legs) Forms: [facility] (Urdu)
[2017-09-08 21:46] LABS: CALCIUM 8.4 mg/dL (8.4-10.2); GFR AFRICAN-AMERICAN > 60; GFR NON-AFRICAN AMERICAN > 60
[2017-09-08 21:50] LABS: BLOOD UREA NITROGEN 12 mg/dl (9-20)
[2017-09-08 21:52] LABS: VENOUS BLOOD GAS BASE EXCESS -0.6 mmol/L (0.0-2.0); VENOUS BLOOD GAS PCO2 46 mmHg (40-60); VENOUS BLOOD GAS PO2 43 mm/Hg (30-55); VENOUS BLOOD PH 7.35 (7.32-7.43)
[2017-09-08 22:21] LABS: PROTHROMBIN TIME 11.2 Seconds (9.8-13.1)
[2017-09-08 22:22] LABS: PARTIAL THROMBOPLASTIN TIME 31.3 Seconds (25.6-37.1)
[2017-09-08 23:07] LABS: BASO % 0.8 % (0.0-2.0); EOS # 0.2 K/uL (0.0-0.7); EOS % 3.3 % (0.0-4.0); HEMOGLOBIN 14.2 g/dL (12.0-18.0); LYMPH # 1.4 K/uL (1.0-4.3); LYMPH % 22.8 % (20.0-40.0); MEAN CELL VOLUME 85.4 fl (80.0-94.0); MEAN CORPUSCULAR HEMOGLOBIN 28.3 pg (27.0-31.0); MEAN CORPUSCULAR HGB CONC 33.1 g/dL (33.0-37.0); MEAN PLATELET VOLUME 7.7 fl (7.2-11.7); MONO # 0.5 K/uL (0.0-0.8); MONO % 8.6 % (0.0-10.0); NEUT # 3.9 K/uL (1.8-7.0); NEUT % 64.5 % (50.0-75.0); RBC 5.01 Mil/uL (4.40-5.90); WHITE BLOOD COUNT 6.1 K/uL (4.8-10.8)
--- NOTE | 2017-09-09 00:14 | US ---
EXAM: US Duplex Bilateral Lower Extremity Veins CLINICAL HISTORY: 56 years old, male; Signs and symptoms; Other: Previous h/o dvt TECHNIQUE: Real-time duplex ultrasound scan of the bilateral lower extremity veins integrating B-mode two-dimensional vascular structure, Doppler spectral analysis, color flow Doppler imaging and compression. COMPARISON: US - DUPLEX LOWER EXTRM VEIN RIGHT 2015-06-03 01:09 FINDINGS: Right deep veins: No DVT in the right common femoral. Partially compressible proximal to distal femoral and popliteal veins consistent with thrombus. There is partial flow demonstrated with color Doppler and spectral waveforms. Posterior tibial vein is patent. Left deep veins: No DVT in the left common femoral and proximal femoral veins. The mid and distal femoral and popliteal veins are partially compressible consistent with thrombus. There is partial flow demonstrated with color Doppler and spectral waveforms. Posterior tibial vein is patent. Soft tissues: Diffuse soft tissue edema. No popliteal cyst. IMPRESSION: Nonocclusive deep venous thrombosis again redemonstrated.
[2017-09-09 01:35] VITALS: BP 135/78; PULSE 79; RESP 16; TEMP 98; O2SAT 98
--- NOTE | 2017-09-09 09:26 | RAD ---
PROCEDURE: CHEST RADIOGRAPH, 1 VIEW HISTORY: chest pain COMPARISON: Frontal chest radiograph 06/10/2017. FINDINGS: LUNGS: No acute infiltrate identified bilaterally. PLEURA: No pneumothorax or pleural fluid seen. CARDIOVASCULAR: Normal. OSSEOUS STRUCTURES: No significant abnormalities. VISUALIZED UPPER ABDOMEN: Normal. OTHER FINDINGS: None. IMPRESSION: No interval acute cardiopulmonary disease appreciated.
== END 2017-09-09 01:35 | disposition home or self-care (01) ==
LOC: H.ER 20:18
DX: L03.115 Cellulitis of right lower limb (principal); L03.116 Cellulitis of left lower limb; I82.409 Acute embolism and thrombosis of unspecified deep veins of unspecified lower extremity; R07.89 Other chest pain; F41.9 Anxiety disorder, unspecified; I12.9 Hypertensive chronic kidney disease with stage 1 through stage 4 chronic kidney disease, or unspecified chronic kidney disease; Z86.711 Personal history of pulmonary embolism; Z86.718 Personal history of other venous thrombosis and embolism
CPT/HCPCS: 71045; 80048; 82803; 84484; 85025; 85610; 85730; 87040; 93970; 96365; 99282; J0690